=== PATIENT | male | born 1975 | race African-American/Black ===

== ENCOUNTER 2020-05-13 18:40 | Emergency (ER) | payer SELFPAY ==
[2020-05-13] MEDS ORDERED: ACETAMINOPHEN 500 MG TAB ONE (20:20)
--- NOTE | 2020-05-13 20:23 | RAD REPORT ---
EXAM DESCRIPTION: RAD - Foot Right 3 View - 05/13/2020 7:58 pm CLINICAL HISTORY: trauma, persistent pain following remote trauma COMPARISON: No comparisons FINDINGS: No acute or chronic fracture changes seen. No dislocation or periosteal reaction. No destr uctive bone process identifiable. Degenerative changes at the joints are minimal. Soft tissue swelling over the dorsum of the foot. Baseline for the patient is unknown. No air or fore ign body. IMPRESSION: Soft tissue swelling without air or foreign body. No acute bone finding.
[2020-05-13 20:40] LABS: Absolute Lymphocytes (CBC) 1.3 K/uL (0.7-4.9); Basophils % 0.4 % (0-1.3); Hematocrit 39.6 % (39.6-49.0); Lymphocytes % 11.1 % (15.3-44.8); MPV 8.8 fL (7.6-11.3); RBC Red Blood Cell Count 4.23 M/uL (4.33-5.43)
[2020-05-13 20:56] LABS: Albumin 3.5 g/dL (3.4-5.0); Bilirubin Direct 0.5 mg/dL (0-0.2); Bilirubin Total 1.7 mg/dL (0.2-1.0); Protein, Total 7.8 g/dL (6.4-8.2)
--- NOTE | 2020-05-13 22:47 | EDPHYS ---
Physician Documentation [facility] Name: Bertrand Sheth Age: 44 yrs Sex: Male : 1975 Arrival Date: 05/13/2020 Time: 18:43 Bed 15 Private MD: ED Physician Josesito Rock HPI: 05/13 19:46 This 44 yrs old Black Male presents to ER via Wheelchair with complaints of Foot Injury.mh7 19:46 The patient presents with an injury. The complaints affect the right foot. Context: The mh7 problem was sustained at work, resulted from a heavy object falling, Wooden board, Mechanism of Injury: direct blow the patient can fully bear weight, the patient is able to ambulate, without difficulty. Onset: The symptoms/episode began/occurred 1 month(s) ago, and became worse 8 day(s) ago. Modifying factors: The symptoms are alleviated by sitting, the symptoms are aggravated by weight bearing. Associated signs and symptoms: Pertinent positives: swelling, Pertinent negatives: calf tenderness, fever, nausea, numbness, rash, tingling, vomiting, warmth, weakness. Severity of symptoms: At their worst the symptoms were moderate, 8 day(s) ago, in the emergency department the symptoms have improved, moderately. 23:08 Patient states that a large wooden board fell onto his right foot about one month ago mh7 while at work. He has been applying topical treatments to area. He has not taken any pain medication. He has denies any recurrent injury. Denies any fever, redness, chest pain, SOB, nausea, vomiting, numbness/tingling, or weakness. He is walking without difficulty. . 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 - Social history:: Smoking status: Patient denies any tobacco usage or history of. ROS: 19:46 Constitutional: Negative for fever, chills, and weight loss, Eyes: Negative for injury, mh7 pain, redness, and discharge, ENT: Negative for injury, pain, and discharge, Neck: Negative for injury, pain, and swelling, Cardiovascular: Negative for chest pain, palpitations, and edema, Respiratory: Negative for shortness of breath, cough, wheezing, and pleuritic chest pain, Abdomen/GI: Negative for abdominal pain, nausea, vomiting, diarrhea, and constipation, Back: Negative for injury and pain, : Negative for injury, bleeding, discharge, and swelling, Skin: Negative for injury, rash, and discoloration, Neuro: Negative for headache, weakness, numbness, tingling, and seizure, Psych: Negative for depression, anxiety, suicide ideation, homicidal ideation, and hallucinations, Allergy/Immunology: Negative for hives, rash, and allergies, Endocrine: Negative for neck swelling, polydipsia, polyuria, polyphagia, and marked weight changes, Hematologic/Lymphatic: Negative for swollen nodes, abnormal bleeding, and unusual bruising. Exam: 19:46 Constitutional: This is a well developed, well nourished patient who is awake, alert, mh7 and in no acute distress. Head/Face: Normocephalic, atraumatic. Eyes: Pupils equal round and reactive to light, extra-ocular motions intact. Lids and lashes normal. Conjunctiva and sclera are non-icteric and not injected. Cornea within normal limits. Periorbital areas with no swelling, redness, or edema. Neck: Trachea midline, no thyromegaly or masses palpated, and no cervical lymphadenopathy. Supple, full range of motion without nuchal rigidity, or vertebral point tenderness. No Meningismus. Chest/axilla: Normal chest wall appearance and motion. Nontender with no deformity. No lesions are appreciated. Cardiovascular: Regular rate and rhythm with a normal S1 and S2. No gallops, murmurs, or rubs. Normal PMI, no JVD. No pulse deficits. Respiratory: Lungs have equal breath sounds bilaterally, clear to auscultation and percussion. No rales, rhonchi or wheezes noted. No increased work of breathing, no retractions or nasal flaring. Abdomen/GI: Soft, non-tender, with normal bowel sounds. No distension or tympany. No guarding or rebound. No evidence of tenderness throughout. Back: No spinal tenderness. No costovertebral tenderness. Full range of motion. Neuro: Awake and alert, GCS 15, oriented to person, place, time, and situation. Cranial nerves II-XII grossly intact. Motor strength 5/5 in all extremities. Sensory grossly intact. Cerebellar exam normal. Normal gait. Psych: Awake, alert, with orientation to person, place and time. Behavior, mood, and affect are within normal limits. 23:08 Skin: Warm, dry with normal turgor. Normal color with no rashes, no lesions, and no mh7 evidence of cellulitis. 23:08 Musculoskeletal/extremity: Extremities: noted in the dorsal right foot: pain, swelling, tenderness, ROM: intact in all extremities, Circulation is intact in all extremities. Sensation intact. Compartment Syndrome exam of affected extremity: is normal. no numbness, no tingling, no sensation deficit, no palor, no weak pulses, Joints: All joints appear normal with full range of motion. Weight bearing: able to fully bear weight, without difficulty, Tendon exam: specific tendon testing normal through active and passive range of motion DVT Exam: negative Homans' sign noted on exam, no appreciated bluish discoloration, no erythema, no increased warmth, Calves: are non-tender, have equal circumference. Vital Signs: 18:49 BP 174 / 100; Pulse 93; Resp 17; Temp 101.1; Pulse Ox 100% ; Weight 108.86 kg; Height 5 ll1 ft. 8 in. (172.72 cm); Pain 8/10; 19:26 Temp 99.8; vc 20:00 BP 180 / 80; Pulse 83; Resp 17; Pulse Ox 100% on R/A; vc 21:00 BP 184 / 106; Pulse 77; Resp 18; Pulse Ox 100% on R/A; vc 22:00 BP 181 / 109; Pulse 82; Resp 18; Pulse Ox 100% on R/A; vc 18:49 Body Mass Index 36.49 (108.86 kg, 172.72 cm) ll1 MDM: 19:18 Patient medically screened. mh7 22:44 Differential diagnosis: fracture, sprain, foreign body, penetrating trauma, arthritis, mh7 cellulitis, Contusion. Data reviewed: vital signs, nurses notes, old medical records, lab test result(s), CBC, electrolytes, radiologic studies, plain films. Data interpreted: Pulse oximetry: on room air is 100 %. Interpretation: normal. Counseling: I had a detailed discussion with the patient and/or guardian regarding: the historical points, exam findings, and any diagnostic results supporting the discharge/admit diagnosis, the presence of at least one elevated blood pressure reading (>120/80) during this emergency department visit, lab results, radiology results, the need for outpatient follow up, to return to the emergency department if symptoms worsen or persist or if there are any questions or concerns that arise at home. Response to treatment: the patient's symptoms have markedly improved after treatment. 05/14 01:46 Refusal of service: The patient/guardian displays adequate decision making capability mh7 and despite a detailed discussion of alternatives, benefits, risks, and consequences refuses: Medications. ED course: Feels better, NAD, VSS, neurovascularly intact, no focal neurological deficits. Discussed test results and findings with the patient. He requested to be discharged from the ED. he will follow up with his doctor but agreed to return to the ED if worsening of symptoms or other concerns.. 01:50 Refusal of service: The patient/guardian displays adequate decision making capability mh7 and despite a detailed discussion of alternatives, benefits, risks, and consequences refuses: ultrasound. 05/13 19:50 Order name: CBC with Diff; Complete Time: 21:13 [facility] 05/13 19:50 Order name: Basic Metabolic Panel; Complete Time: 21:13 [facility] 05/13 19:18 Order name: Foot Right 3 View XRAY; Complete Time: 20:37 [facility] 05/13 19:50 Order name: LFT's; Complete Time: 21:13 [facility] 05/13 21:16 Order name: CPK; Complete Time: 22:35 mh7 Administered Medications: 05/13 20:18 Drug: Tylenol 1000 mg Route: PO; vc 22:18 Follow up: Response: No adverse reaction vc Disposition: 05/14 01:46 Co-signature as Attending Physician, Josesito Rock MD. [facility] Disposition: 05/13/20 22:46 Discharged to Home. Impression: Right Foot Contusion. - Condition is Stable. - Discharge Instructions: Foot Contusion, [id number]. - Medication Reconciliation Form, Thank You Letter, Antibiotic Education, Prescription Opioid Use form. - Follow up: Private Physician; When: 1 - 2 days; Reason: Worsening of condition, Recheck today's complaints, Continuance of care, Re-evaluation by your physician. Follow up: Rose Marie Avilez MD; When: 1 - 2 days; Reason: Worsening of condition, Recheck today's complaints. Follow up: Henrry Mas DPM; When: 1 - 2 days; Reason: Worsening of condition, Recheck today's complaints. - Problem is an ongoing problem. - Symptoms have improved. Signatures: Dispatcher [employer] EDMS Jade Pete RN RN vc Neena Montes RN RN ll1 Josesito Rock MD MD mh7 Corrections: (The following items were deleted from the chart) 05/13 23:03 22:46 05/13/2020 22:46 Discharged to Home. Impression: Right Foot Contusion. Condition vc is Stable. Forms are Medication Reconciliation Form, Thank You Letter, Antibiotic Education, Prescription Opioid Use. Follow up: Private Physician; When: 1 - 2 days; Reason: Worsening of condition, Recheck today's complaints, Continuance of care, Re-evaluation by your physician. Follow up: Rose Marie Avilez; When: 1 - 2 days; Reason: Worsening of condition, Recheck today's complaints. Follow up: Henrry Mas; When: 1 - 2 days; Reason: Worsening of condition, Recheck today's complaints. Problem is an ongoing problem. Symptoms have improved. mh7
--- NOTE | 2020-05-13 22:47 | ER ---
Nurse's Notes [facility] Name: Bertrand Sheth Age: 44 yrs Sex: Male : 1975 Arrival Date: 05/13/2020 Time: 18:43 Bed 15 Private MD: Diagnosis: Right Foot Contusion Presentation: 05/13 18:49 Chief complaint: Patient states: Large board hit right foot over 1 month ago. Right ll1 foot started to get painful and swollen 8 days ago. Coronavirus screen: Client denies travel out of the [place] in the last 14 days. At this time, the client does not indicate any symptoms associated with coronavirus-19. Ebola Screen: Patient denies travel to an Ebola-affected area in the 21 days before illness onset. Initial Sepsis Screen: Does the patient meet any 2 criteria? Temp <36.0*C (96.8*F)) or > 38.3*C (100.9*F). HR > 90 bpm. Yes Does the patient have a suspected source of infection? No. Patient's initial sepsis screen is negative. Risk Assessment: Do you want to hurt yourself or someone else? Patient reports no desire to harm self or others. Onset of symptoms was May 03, 2020. 18:49 Method Of Arrival: Wheelchair ll1 18:49 Acuity: ELIZABETH 3 ll1 Triage Assessment: 19:00 General: Appears in no apparent distress. comfortable, Behavior is calm, cooperative, vc appropriate for age. Pain: Complains of pain in right foot Pain does not radiate. Pain currently is 7 out of 10 on a pain scale. Quality of pain is described as squeezing. Musculoskeletal: Circulation, motion, and sensation intact. Range of motion: intact in all extremities. Injury Description: Dropped a piece of wood on his foot. 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 - Social history:: Smoking status: Patient denies any tobacco usage or history of. Screenin:00 Abuse screen: Denies threats or abuse. Nutritional screening: No deficits noted. vc Tuberculosis screening: No symptoms or risk factors identified. Fall Risk None identified. Assessment: 19:00 General: Appears in no apparent distress. comfortable, Behavior is calm, cooperative, vc appropriate for age. Pain: Complains of pain in right foot. Neuro: Level of Consciousness is awake, alert, obeys commands, Oriented to person, place, time, situation. Cardiovascular: Capillary refill < 3 seconds Patient's skin is warm and dry. Respiratory: No deficits noted. GI: No deficits noted. : No signs and/or symptoms were reported regarding the genitourinary system. 20:00 Reassessment: Patient appears in no apparent distress at this time. Patient and/or vc family updated on plan of care and expected duration. Pain level reassessed. Patient is alert, oriented x 3, equal unlabored respirations, skin warm/dry/pink. 21:00 Reassessment: Patient and/or family updated on plan of care and expected duration. Pain vc level reassessed. Patient is alert, oriented x 3, equal unlabored respirations, skin warm/dry/pink. 22:00 Reassessment: Patient and/or family updated on plan of care and expected duration. Pain vc level reassessed. Patient is alert, oriented x 3, equal unlabored respirations, skin warm/dry/pink. 22:50 Reassessment: Patient appears in no apparent distress at this time. Patient and/or vc family updated on plan of care and expected duration. Pain level reassessed. Patient is alert, oriented x 3, equal unlabored respirations, skin warm/dry/pink. Patient states symptoms have improved. Vital Signs: 18:49 BP 174 / 100; Pulse 93; Resp 17; Temp 101.1; Pulse Ox 100% ; Weight 108.86 kg; Height 5 ll1 ft. 8 in. (172.72 cm); Pain 8/10; 19:26 Temp 99.8; vc 20:00 BP 180 / 80; Pulse 83; Resp 17; Pulse Ox 100% on R/A; vc 21:00 BP 184 / 106; Pulse 77; Resp 18; Pulse Ox 100% on R/A; vc 22:00 BP 181 / 109; Pulse 82; Resp 18; Pulse Ox 100% on R/A; vc 18:49 Body Mass Index 36.49 (108.86 kg, 172.72 cm) ll1 ED Course: 18:43 Patient arrived in ED. as 18:50 Triage completed. ll1 18:50 Arm band placed on Patient placed in an exam room, on a stretcher. ll1 19:00 Patient has correct armband on for positive identification. Bed in low position. Call vc light in reach. Pulse ox on. NIBP on. 19:02 Josesito Rock MD is Attending Physician. [facility] 19:20 Jade Pete, RN is Primary Nurse. vc 19:59 Foot Right 3 View XRAY In Process Unspecified. EDMS 22:45 Rose Marie Avilez MD is Referral Physician. [facility] 22:45 Henrry Mas DPM is Referral Physician. [facility] 22:50 No provider procedures requiring assistance completed. Patient did not have IV access vc during this emergency room visit. Administered Medications: 20:18 Drug: Tylenol 1000 mg Route: PO; vc 22:18 Follow up: Response: No adverse reaction vc Outcome: 22:46 Discharge ordered by . [facility] 23:03 Discharged to home ambulatory. vc 23:03 Condition: good 23:03 Discharge instructions given to patient, Instructed on discharge instructions, follow up and referral plans. Demonstrated understanding of instructions, follow-up care. 23:03 Patient left the ED. vc Signatures: Dispatcher [employer] EDMS Claudia Easley as Jade Pete, RN RN Neena Mancera RN RN 1 Josesito Rock MD MD [facility]
[2020-05-17 19:10] VITALS: O2SAT 100
[2020-05-17 19:11] VITALS: TEMP 99.8
[2020-05-17 19:15] VITALS: BP 181/109
== END 2020-05-13 23:03 | disposition home or self-care (01) ==
LOC: ER 18:40
DX: S90.31XA Contusion of right foot, initial encounter (principal); W20.8XXA Other cause of strike by thrown, projected or falling object, initial encounter; Y93.9 Activity, unspecified; Y92.9 Unspecified place or not applicable; Y99.0 Civilian activity done for income or pay; H91.93 Unspecified hearing loss, bilateral
CPT/HCPCS: 36415; 80048; 80076; 82550; 85025; 99284

== ENCOUNTER 2020-11-10 06:04 | Inpatient (IN) | payer BC, SELFPAY ==
[2020-11-10 06:34] LABS: Absolute Lymphocytes (CBC) 1.1 K/uL (0.7-4.9); Basophils % 0.4 % (0-1.3); Hematocrit 43.3 % (39.6-49.0); Lymphocytes % 11.4 % (15.3-44.8); MPV 9.1 fL (7.6-11.3); RBC Red Blood Cell Count 4.66 M/uL (4.33-5.43)
[2020-11-10 06:38] LABS: Protime INR 0.97
[2020-11-10 06:56] LABS: Albumin 4.3 g/dL (3.4-5.0); Bilirubin Direct 0.2 mg/dL (0-0.2); Bilirubin Total 0.8 mg/dL (0.2-1.0); Magnesium 1.9 mg/dL (1.8-2.4); Potassium 3.4 mmol/L (3.5-5.1); Protein, Total 8.3 g/dL (6.4-8.2); Troponin (Emerg Dept Use Only) 0.43 ng/mL (0.0-0.045)
[2020-11-10] MEDS ORDERED: cloNIDine HCL 0.1 MG TAB ONE ×2 (07:08→15:11)
[2020-11-10] MEDS ORDERED: ASPIRIN 81 MG CHEWABLE TABLET ONE (07:08)
--- NOTE | 2020-11-10 08:22 | RAD REPORT ---
EXAM DESCRIPTION: CT - Angio Aorta For Dissection - 11/10/2020 8:01 am CLINICAL HISTORY: Chest pain radiating to the back. CHEST PAIN COMPARISON: No comparisons TECHNIQUE: CT angiography of the aorta was performed with MIPs. All CT scans are performed using dose optimization technique as appropriate and may include automated exposure control or mA/KV adjustment according to patient size. FINDINGS: A left aortic arch is present with normal branching pattern of the great vessels.No acute aortic finding is seen such as aneurysm, penetrating ulcer or dissection. The celiac axis, SMA, ANEL and renal arteries are patent. No evidence of pulmonary embolism. The lungs are clear. The liver demonstrates no focal mass or biliary dilatation.The spleen, pancreas, adrenal glands are w ithin normal limits for arterial phase imaging. 3 mm stone is present at the right UVJ resulting in mild right hydronephrosis. Punctate calculi noted superior right kidney. No bowel obstruction, free fluid or abscess.No pathologic enlarged lymphadenopathy identified. Prominent posterior disc bulges are seen lower lumbar levels. IMPRESSION: 3 mm stone right UVJ resulting in mild right hydronephrosis. No acute aortic finding seen.
[2020-11-10] MEDS ORDERED: LABETALOL 20 MG/4ML SYRINGE IV ONE ×2 (08:43→09:55)
--- NOTE | 2020-11-10 08:49 | EDPHYS ---
Physician Documentation [facility] Name: Bertrand Sheth Age: 44 yrs Sex: Male : 1975 Arrival Date: 11/10/2020 Time: 06:07 Bed 19 Private MD: ED Physician Jonathon Redding HPI: 11/10 06:41 This 44 yrs old Black Male presents to ER via Wheelchair with complaints of Breathing mh7 Difficulty. 06:41 The patient has shortness of breath at rest, with light activity. Onset: The mh7 symptoms/episode began/occurred this morning, at 04:30. Duration: The symptoms are intermittent, with no pattern. The patient's shortness of breath is aggravated by exertion, light activity, is alleviated by nothing. Associated signs and symptoms: Pertinent positives: chest pain, Pertinent negatives: non-productive cough, productive cough, diaphoresis, dizziness, fever, hemoptysis, loss of consciousness, nausea, numbness in extremities, visual changes, vomiting. Severity of symptoms: At their worst the symptoms were moderate today, in the emergency department the symptoms are unchanged. 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 - Social history:: Smoking status: Patient denies any tobacco usage or history of. ROS: 06:41 Constitutional: Negative for fever, chills, and weight loss, Eyes: Negative for injury, mh7 pain, redness, and discharge, ENT: Negative for injury, pain, and discharge, Neck: Negative for injury, pain, and swelling, Abdomen/GI: Negative for abdominal pain, nausea, vomiting, diarrhea, and constipation, Back: Negative for injury and pain, : Negative for injury, bleeding, discharge, and swelling, MS/Extremity: Negative for injury and deformity, Skin: Negative for injury, rash, and discoloration, Neuro: Negative for headache, weakness, numbness, tingling, and seizure, Psych: Negative for depression, anxiety, suicide ideation, homicidal ideation, and hallucinations, Allergy/Immunology: Negative for hives, rash, and allergies, Endocrine: Negative for neck swelling, polydipsia, polyuria, polyphagia, and marked weight changes, Hematologic/Lymphatic: Negative for swollen nodes, abnormal bleeding, and unusual bruising. Exam: 06:41 Constitutional: This is a well developed, well nourished patient who is awake, alert, mh7 and in no acute distress. Head/Face: Normocephalic, atraumatic. Eyes: Pupils equal round and reactive to light, extra-ocular motions intact. Lids and lashes normal. Conjunctiva and sclera are non-icteric and not injected. Cornea within normal limits. Periorbital areas with no swelling, redness, or edema. Neck: Trachea midline, no thyromegaly or masses palpated, and no cervical lymphadenopathy. Supple, full range of motion without nuchal rigidity, or vertebral point tenderness. No Meningismus. Chest/axilla: Normal chest wall appearance and motion. Nontender with no deformity. No lesions are appreciated. Cardiovascular: Regular rate and rhythm with a normal S1 and S2. No gallops, murmurs, or rubs. Normal PMI, no JVD. No pulse deficits. Respiratory: Lungs have equal breath sounds bilaterally, clear to auscultation and percussion. No rales, rhonchi or wheezes noted. No increased work of breathing, no retractions or nasal flaring. Abdomen/GI: Soft, non-tender, with normal bowel sounds. No distension or tympany. No guarding or rebound. No evidence of tenderness throughout. Back: No spinal tenderness. No costovertebral tenderness. Full range of motion. Skin: Warm, dry with normal turgor. Normal color with no rashes, no lesions, and no evidence of cellulitis. MS/ Extremity: Pulses equal, no cyanosis. Neurovascular intact. Full, normal range of motion. Neuro: Awake and alert, GCS 15, oriented to person, place, time, and situation. Cranial nerves II-XII grossly intact. Motor strength 5/5 in all extremities. Sensory grossly intact. Cerebellar exam normal. Normal gait. Psych: Awake, alert, with orientation to person, place and time. Behavior, mood, and affect are within normal limits. Vital Signs: 06:25 BP 210 / 117 RA; Pulse 69; Resp 17; Temp 98(TE); Pulse Ox 98% on R/A; Weight 108.86 kg lp1 (R); 06:26 BP 212 / 116 LA; lp1 06:34 BP 197 / 117; mg2 07:30 BP 198 / 110; Pulse 78; Resp 16; Pulse Ox 99% ; ph 08:30 BP 195 / 103; Pulse 69; Resp 18; Pulse Ox 99% on R/A; ph 09:07 BP 181 / 99; Pulse 64; Resp 18; Pulse Ox 98% on R/A; ph 09:30 BP 152 / 94; Pulse 66; Resp 16; Pulse Ox 100% on R/A; ph 10:30 BP 183 / 101; Pulse 67; Resp 18; Pulse Ox 98% on R/A; ph 11:42 BP 162 / 114; Pulse 65; Resp 18; Pulse Ox 99% on R/A; ph 12:30 BP 176 / 101; Pulse 67; Resp 18; Pulse Ox 98% on R/A; ph 13:28 BP 166 / 91; Pulse 67; Resp 18; Pulse Ox 98% on R/A; ph MDM: 07:19 Patient medically screened. rn 08:46 Differential diagnosis: Myocardial Infarction Pneumothorax pulmonary edema, Unstable rn Angina aortic dissection. Data reviewed: vital signs, nurses notes, lab test result(s), EKG, radiologic studies, CT scan, plain films, and as a result, I will admit patient. Counseling: I had a detailed discussion with the patient and/or guardian regarding: the historical points, exam findings, and any diagnostic results supporting the discharge/admit diagnosis, lab results, radiology results, the need for further work-up and treatment in the hospital. Response to treatment: the patient's symptoms have mildly improved after treatment, and as a result, I will admit patient. Admission orders: after a detailed discussion of the patient's condition and case, the admit orders are written by me. ED course: CT aorta neg, elevated troponin, BP still elevated, will repeat labetalol dose and admit to Dr. Avilez. Incidental right UVJ stone, patient denies any abd pain. . 11/10 06:12 Order name: Basic Metabolic Panel ll2 11/10 06:12 Order name: CBC with Diff; Complete Time: 06:45 ll2 11/10 06:12 Order name: LFT's; Complete Time: 07:42 ll2 11/10 06:12 Order name: Magnesium; Complete Time: 07:42 ll2 11/10 06:12 Order name: NT PRO-BNP; Complete Time: 07:42 ll2 11/10 06:12 Order name: PT-INR; Complete Time: 06:45 ll2 11/10 06:12 Order name: Troponin (emerg Dept Use Only); Complete Time: 07:42 ll2 11/10 06:12 Order name: Basic Metabolic Panel; Complete Time: 07:42 EDMS 11/10 10:07 Order name: Comprehensive Metabolic Panel EDMS 11/10 10:07 Order name: Comprehensive Metabolic Panel EDMS 11/10 10:08 Order name: Urinalysis EDMS 11/10 10:08 Order name: CBC with Automated Diff EDMS 11/10 10:08 Order name: CBC with Automated Diff EDMS 11/10 06:12 Order name: XRAY Chest (1 view); Complete Time: 09:18 2 11/10 07:42 Order name: CT Aorta for Dissection; Complete Time: 09:18 11/10 10:08 Order name: Magnesium EDMS 11/10 10:08 Order name: Magnesium EDMS 11/10 10:08 Order name: NT PRO-BNP EDMS 11/10 10:08 Order name: NT PRO-BNP EDMS 11/10 10:08 Order name: Phosphorus EDMS 11/10 10:08 Order name: Phosphorus EDME 11/10 10:19 Order name: Troponin I EDME 11/10 10:19 Order name: Troponin I EDME 11/10 10:19 Order name: Troponin I EDME 11/10 10:20 Order name: Echo with Doppler EDME 11/10 10:24 Order name: SARS-COV-2 RT PCR EDME 11/10 06:12 Order name: EKG; Complete Time: 06:13 ll2 11/10 06:12 Order name: Cardiac monitoring; Complete Time: 06:28 2 11/10 06:12 Order name: EKG - Nurse/Tech; Complete Time: 06:12 2 11/10 06:12 Order name: IV Saline Lock; Complete Time: 06:28 ll2 11/10 06:12 Order name: Labs collected and sent; Complete Time: 06:28 2 11/10 06:12 Order name: O2 Per Protocol; Complete Time: 06:28 2 11/10 06:12 Order name: O2 Sat Monitoring; Complete Time: 06:28 2 11/10 10:12 Order name: Heart Healthy EDME 11/10 10:20 Order name: CONS Physician Consult EDMS Administered Medications: 06:55 Drug: cloNIDine 0.1 mg Route: PO; mg2 07:30 Follow up: Response: No adverse reaction ph 06:56 Drug: Aspirin Chewable Tablet 324 mg Route: PO; mg2 07:30 Follow up: Response: No adverse reaction ph 08:37 Drug: Labetalol 5 mg Route: IVP; Infused Over: 2 mins; Site: right antecubital; ph 09:00 Follow up: Response: No adverse reaction; Blood pressure is lowered ph 08:53 Not Given (Duplicate Order): Aspirin Chewable Tablet 324 mg PO once; 81 mg tablets x 4 ph 11:10 Drug: Labetalol 5 mg Route: IVP; Infused Over: 2 mins; Site: right antecubital; ph 11:30 Follow up: Response: No adverse reaction; Blood pressure is lowered ph Disposition: 11/10/20 08:49 Hospitalization ordered by Rose Marie Avilez for Observation. Preliminary diagnosis are Chest pain, unspecified, Dyspnea, unspecified, Malignant Hypertension, Calculus of ureter. - Bed requested for Telemetry/MedSurg (observation). - Status is Observation. ph - Condition is Stable. - Problem is new. - Symptoms have improved. Signatures: Dispatcher [employer] EDME Liz Rivera Roman, MD MD rn Pena, Laura, RN RN lp1 Lucille Khalil RN RN Poli Aranda RN RN mg2 Jena Ocampo RN RN ll2 Josesito Rock MD MD mh7 Corrections: (The following items were deleted from the chart) 09:34 09:07 CORONAVIRUS+MR.LAB.BRZ ordered. EDME EDMS 10:11 10:08 CONS Physician Consult ordered. EDME EDMS 10:11 10:08 Renal ordered. EDME EDMS 14:11 08:49 Hospitalization Ordered by Rose Marie Avilez MD for Observation. Preliminary bd diagnosis is Chest pain, unspecified; Dyspnea, unspecified; Malignant Hypertension; Calculus of ureter. Bed requested for Telemetry/MedSurg (observation). Status is Observation. Condition is Stable. Problem is new. Symptoms have improved. rn 16:25 14:11 11/10/2020 08:49 Hospitalization Ordered by Rose Marie Avilez MD for Observation. bd Preliminary diagnosis is Chest pain, unspecified; Dyspnea, unspecified; Malignant Hypertension; Calculus of ureter. Bed requested for [facility] ER HOLD. Status is Observation. Condition is Stable. Problem is new. Symptoms have improved. bd 18:01 16:25 11/10/2020 08:49 Hospitalization Ordered by Rose Marie Avilez MD for Observation. ph Preliminary diagnosis is Chest pain, unspecified; Dyspnea, unspecified; Malignant Hypertension; Calculus of ureter. Bed requested for Telemetry/MedSurg (observation). Status is Observation. Condition is Stable. Problem is new. Symptoms have improved. bd
--- NOTE | 2020-11-10 08:49 | ER ---
Nurse's Notes [facility] Name: Bertrand Sheth Age: 44 yrs Sex: Male : 1975 Arrival Date: 11/10/2020 Time: 06:07 Bed 19 Private MD: Diagnosis: Chest pain, unspecified;Dyspnea, unspecified;Malignant Hypertension;Calculus of ureter Presentation: 11/10 06:26 Chief complaint: Patient states: Chest pain that began about 0430 this AM, reports lp1 difficulty breathing. Coronavirus screen: Client denies travel out of the [place] in the last 14 days. At this time, the client does not indicate any symptoms associated with coronavirus-19. Ebola Screen: No symptoms or risks identified at this time. Initial Sepsis Screen: Does the patient meet any 2 criteria? No. Patient's initial sepsis screen is negative. Does the patient have a suspected source of infection? No. Patient's initial sepsis screen is negative. Risk Assessment: Do you want to hurt yourself or someone else? Patient reports no desire to harm self or others. Onset of symptoms was November 10, 2020 at 04:30. 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 - Social history:: Smoking status: Patient denies any tobacco usage or history of. Screenin:27 Abuse screen: Denies threats or abuse. Denies injuries from another. Nutritional lp1 screening: No deficits noted. Tuberculosis screening: No symptoms or risk factors identified. 06:35 Fall Risk IV access (20 points). mg2 Assessment: 06:30 General: Appears in no apparent distress. comfortable, Behavior is calm. Pain: mg2 Complains of pain in chest. Neuro: Level of Consciousness is awake, alert, obeys commands, Oriented to person, place, time, situation. Cardiovascular: Capillary refill < 3 seconds Patient's skin is warm and dry. Respiratory: Airway is patent Respiratory effort is even, unlabored, Respiratory pattern is regular, symmetrical. GI: No signs and/or symptoms were reported involving the gastrointestinal system. : No signs and/or symptoms were reported regarding the genitourinary system. EENT: No signs and/or symptoms were reported regarding the EENT system. Derm: Skin is intact, is healthy with good turgor, Skin is pink, warm \T\ dry. normal. Musculoskeletal: Circulation, motion, and sensation intact. Capillary refill < 3 seconds. 07:48 Reassessment: Patient appears in no apparent distress at this time. Patient and/or ph family updated on plan of care and expected duration. Pain level reassessed. Patient is alert, oriented x 3, equal unlabored respirations, skin warm/dry/pink. Pt taken to CT. 09:00 Reassessment: Patient appears in no apparent distress at this time. Patient and/or ph family updated on plan of care and expected duration. Pain level reassessed. Patient is alert, oriented x 3, equal unlabored respirations, skin warm/dry/pink. 10:00 Reassessment: Patient appears in no apparent distress at this time. Patient and/or ph family updated on plan of care and expected duration. Pain level reassessed. Patient is alert, oriented x 3, equal unlabored respirations, skin warm/dry/pink. 11:00 Reassessment: Patient appears in no apparent distress at this time. Patient and/or ph family updated on plan of care and expected duration. Pain level reassessed. Patient is alert, oriented x 3, equal unlabored respirations, skin warm/dry/pink. Pt ambulatory to restroom w/ steady gait. 12:00 Reassessment: Patient appears in no apparent distress at this time. Patient and/or ph family updated on plan of care and expected duration. Pain level reassessed. Patient is alert, oriented x 3, equal unlabored respirations, skin warm/dry/pink. 13:00 Reassessment: Patient appears in no apparent distress at this time. Patient and/or ph family updated on plan of care and expected duration. Pain level reassessed. Patient is alert, oriented x 3, equal unlabored respirations, skin warm/dry/pink. Vital Signs: 06:25 BP 210 / 117 RA; Pulse 69; Resp 17; Temp 98(TE); Pulse Ox 98% on R/A; Weight 108.86 kg lp1 (R); 06:26 BP 212 / 116 LA; lp1 06:34 BP 197 / 117; mg2 07:30 BP 198 / 110; Pulse 78; Resp 16; Pulse Ox 99% ; ph 08:30 BP 195 / 103; Pulse 69; Resp 18; Pulse Ox 99% on R/A; ph 09:07 BP 181 / 99; Pulse 64; Resp 18; Pulse Ox 98% on R/A; ph 09:30 BP 152 / 94; Pulse 66; Resp 16; Pulse Ox 100% on R/A; ph 10:30 BP 183 / 101; Pulse 67; Resp 18; Pulse Ox 98% on R/A; ph 11:42 BP 162 / 114; Pulse 65; Resp 18; Pulse Ox 99% on R/A; ph 12:30 BP 176 / 101; Pulse 67; Resp 18; Pulse Ox 98% on R/A; ph 13:28 BP 166 / 91; Pulse 67; Resp 18; Pulse Ox 98% on R/A; ph ED Course: 06:07 Patient arrived in ED. am2 06:08 Poli Aranda, RN is Primary Nurse. mg2 06:13 Josesito Rock MD is Attending Physician. mh7 06:15 Inserted saline lock: 20 gauge in right antecubital area, using aseptic technique. mg2 Blood collected. by MICHAELA matt. 06:27 Triage completed. lp1 06:27 Patient has correct armband on for positive identification. Bed in low position. Call lp1 light in reach. Side rails up X2. railroad worker on. Pulse ox on. NIBP on. 06:34 No provider procedures requiring assistance completed. mg2 07:07 XRAY Chest (1 view) In Process Unspecified. EDMS 07:19 Attending Physician role handed off by Josesito Rock MD rn 07:19 Jonathon Redding MD is Attending Physician. rn 07:30 Arm band placed on. ph 08:01 CT Aorta for Dissection In Process Unspecified. EDMS 08:48 Rose Marie Avilez MD is Hospitalizing Provider. rn 13:28 Patient admitted, IV remains in place. ph Administered Medications: 06:55 Drug: cloNIDine 0.1 mg Route: PO; mg2 07:30 Follow up: Response: No adverse reaction ph 06:56 Drug: Aspirin Chewable Tablet 324 mg Route: PO; mg2 07:30 Follow up: Response: No adverse reaction ph 08:37 Drug: Labetalol 5 mg Route: IVP; Infused Over: 2 mins; Site: right antecubital; ph 09:00 Follow up: Response: No adverse reaction; Blood pressure is lowered ph 08:53 Not Given (Duplicate Order): Aspirin Chewable Tablet 324 mg PO once; 81 mg tablets x 4 ph 11:10 Drug: Labetalol 5 mg Route: IVP; Infused Over: 2 mins; Site: right antecubital; ph 11:30 Follow up: Response: No adverse reaction; Blood pressure is lowered ph Outcome: 08:49 Decision to Hospitalize by Provider. rn 14:30 Admitted to ER Hold. Please see [facility] for further documentation. ph 14:30 Condition: stable 14:30 Instructed on the need for admit. 18:01 Patient left the ED. ph Signatures: Dispatcher [employer] EDMS Jonathon Redding MD MD rn Pena, Laura, RN RN 1 Lucille Khalil RN RN ph Moreno, Amanda 2 Poli Aranda RN RN mg2 Josesito Rock MD MD mh7
--- NOTE | 2020-11-10 08:55 | RAD REPORT ---
EXAM DESCRIPTION: RAD - Chest Single View - 11/10/2020 7:07 am CLINICAL HISTORY: Chest pain;SOB;Dyspnea Chest pain. COMPARISON: Chest Single View dated 01/09/2016; CHEST SINGLE VIEW dated 09/30/2010; CHEST SINGLE VIEW dated 06/28/2008 FINDINGS: Portable technique limits examination quality. The lungs are grossly clear. The heart is normal in size. No displaced fractures. IMPRESSION: No acute intrathoracic process suspected.
[2020-11-10] MEDS ORDERED: ONDANSETRON 4 MG/2 ML VIAL IV PRN (10:04)
[2020-11-10] MEDS ORDERED: ACETAMINOPHEN 500 MG TAB PO PRN (10:04)
[2020-11-10] MEDS ORDERED: FUROSEMIDE 20 MG/ 2ML VIAL IV ONE (10:09)
[2020-11-10] MEDS ORDERED: AMLODIPINE 5 MG TAB PO ONE (10:09)
[2020-11-10] MEDS: cloNIDine HCL 0.1 MG TAB PO SCH ×2 (14:00→21:29)
[2020-11-10] MEDS ORDERED: IPRATROPIUM BROM 0.5MG/2.5ML NEB SCH (14:00)
[2020-11-10] MEDS ORDERED: ALBUTEROL 2.5 MG/3 ML NEB SOL NEB SCH (14:00)
[2020-11-10] MEDS ORDERED: FUROSEMIDE 20 MG/ 2ML VIAL ONE (15:10)
[2020-11-10] MEDS ORDERED: AMLODIPINE 10 MG TAB ONE (15:11)
[2020-11-10 18:15] VITALS: BMI 34.9
--- NOTE | 2020-11-10 19:57 | CON ---
Date of Consultation: 11/10/2020 Reason For Consultation: Chest pain. History Of Present Illness: This is a 44-year-old male who comes in with chest pain and shortness of breath. He said he woke up and could not catch his breath. Blood pressure was very high, presented to the emergency room. He does not have any medical history except hypertension. Does not have any other risk factors. Past Medical History: Hypertension. Medications: Refer consultation sheet for detailed list. Allergies: NO KNOWN DRUG ALLERGIES. Family History: No premature coronary artery disease, cancer. Social History: Does not smoke or drink. Does not use any drugs. Review of Systems: All systems reviewed and they were negative except for what is mentioned in the HPI. Physical Examination: Vital Signs: Temperature is 97.6, pulse 65, breathing 18, blood pressure 167/98, saturating 98% on r oom air. General: Pleasant middle-aged male, in no apparent distress. Head and Neck: Pupils are equal, reactive to light. Intact eye movements. No JVD. No cervical lym phadenopathy. Neck: Supple. Thyroid is not enlarged. Lungs: Clear to auscultation bilaterally. No rhonchi, rales, or crackles. No accessory muscle use. Heart: Regular rate and rhythm. No extra sounds. Abdomen: Soft, nontender. Bowel sounds positive. No organomegaly. No rigidity or rebound. Extremities: No edema, clubbing, or cyanosis. Skin: No rash. Neurologic: Alert, awake. No acute focal deficits appreciated. Investigations: EKG is normal sinus rhythm without acute abnormalities. Creatinine 1.57. Troponins was 0.43, hemoglobin 14.9. Assessment/plan: 1.Chest pain with risk factors including hypertension and elevated troponin suggestive of non-ST joan vation myocardial infarction. Admit. Start him on Lovenox and aspirin, oxygen therapy. Trend tropo nins and obtain echocardiogram. Keep n.p.o. past midnight for possible coronary angiogram tomorrow m josias. 2.Hypertensive crisis. Agree with amlodipine. Recommend to start also Coreg 6.25 mg twice a day. Monitor blood pressure closely. 3.Chronic kidney disease, likely due to malignant hypertension. Monitor BUN, creatinine. Thank you for the consult. /JEWELS Voice ID: [id number] Report ID: [id number]
[2020-11-10] MEDS: HEPARIN 5000 UNIT/ML 1 ML VIAL SQ SCH (21:29)
[2020-11-11 06:03] LABS: Absolute Lymphocytes (CBC) 1.6 K/uL (0.7-4.9); Basophils % 0.2 % (0-1.3); Hematocrit 40.4 % (39.6-49.0); Lymphocytes % 18.9 % (15.3-44.8); MPV 9.1 fL (7.6-11.3); RBC Red Blood Cell Count 4.31 M/uL (4.33-5.43)
[2020-11-11 06:13] LABS: Albumin 3.5 g/dL (3.4-5.0); Bilirubin Total 0.8 mg/dL (0.2-1.0); Magnesium 2.1 mg/dL (1.8-2.4); Phosphorus 3.7 mg/dL (2.5-4.9); Potassium 3.1 mmol/L (3.5-5.1); Protein, Total 7.1 g/dL (6.4-8.2)
[2020-11-11] MEDS: AMLODIPINE 10 MG TAB PO SCH (08:32)
[2020-11-11] MEDS: cloNIDine HCL 0.1 MG TAB PO SCH ×3 (08:33→21:10)
[2020-11-11] MEDS: HEPARIN 5000 UNIT/ML 1 ML VIAL SQ SCH ×2 (08:34→21:11)
[2020-11-11] MEDS ORDERED: HEPA 1000U/500MLS 1,000 UNIT/500 ML BAG IV ONE (08:42)
[2020-11-11] MEDS ORDERED: LIDOCAINE 1% 20 ML MDV ONE (08:42)
[2020-11-11] MEDS ORDERED: ACETYLCYST 20% 4 ML VIAL IH ONE (08:43)
[2020-11-11] MEDS ORDERED: NA CHLORIDE 0.9% 500 ML ONE (08:50)
[2020-11-11] MEDS ORDERED: MIDAZOLAM HCL 2 MG/2 ML INJ ONE ×2 (09:22→09:46)
[2020-11-11] MEDS ORDERED: FENTANYL CITR 100 MCG/2 ML ONE (09:23)
[2020-11-11] MEDS ORDERED: ATROPINE SULF 1 MG/10 ML SYR IV ONE (09:23)
[2020-11-11] MEDS ORDERED: NA CHLORIDE 0.9% 0 ML ONE (09:23)
--- NOTE | 2020-11-11 10:16 | OP ---
Date of Procedure: 11/10/2020 Surgeon: Demarco Villar MD Front Window Cashier: Mr. Ugarte. Angio-Seal was done for closure of the right common femoral artery entry site. He will be at bedrest for 2 hours. He can go home whenever it is okay with Dr. Avilez. I would like to see him in the offi ce in 2 weeks and he should be on aspirin and statin and antihypertensive therapy. Indications: Admitted to Dr. Avilez and seen by Dr. Rodríguez yesterday, 11/10/2020 for atypical chest pa in, hypertensive crisis, elevated troponin. Procedure In Detail: Brought [facility] the [facility] today as an inpatient, prepped and draped in the routin e sterile fashion. Underwent the left heart catheterization, selective coronary arteriogram. He was given Versed and fentanyl for sedation. A 6-Uzbek sheath introduced in the right common femoral ar tsering successfully using the Seldinger technique. Angiography there was normal. Angio-Seal was used to close the case. JL4 and JR4 catheters were used to select the left main and right main respective ly. His RCA was normal. It was right dominant. His left main was normal. LAD was normal. He had a 40% to 50% ostial ramus stenosis. No complications. Blood loss was 5 mL. Postoperative Diagnosis: Mild coronary artery disease. Plan: Plan is for medical treatment. Anesthesia: Total conscious sedation 30 minutes. ELI/JEWELS Voice ID: [id number] Report ID: [id number]
[2020-11-11 16:26] LABS: CKMB Creatine Kinase MB 2.3 ng/mL (0.3-3.6); Uric Acid 7.9 mg/dL (3.5-7.2)
[2020-11-11] MEDS ORDERED: D5W 1,000 ML with NA BICARB 8.4% 50 MEQ IV SCH ×2 (18:00)
--- NOTE | 2020-11-11 20:14 | RAD REPORT ---
EXAM DESCRIPTION: US - Renal Ultrasound-Complete - 11/11/2020 7:45 pm CLINICAL HISTORY: abnormal renal function COMPARISON: CT November 10 FINDINGS: The right kidney measures approximately 9.6 x 6.7. The left kidney measures approximately 10.2 x 5.8. Renal cortical thickness and echogenicity are normal. Mild right-sided hydronephrosis pr esent similar to the prior day CT study. No left-sided hydronephrosis. No solid mass of either kidney . Mostly contracted bladder shows no gross abnormality. IMPRESSION: Mild right-sided hydronephrosis similar to prior day CT study. No other significant findings.
[2020-11-11] MEDS: ACETYLCYST 20% 800 MG/4 ML VIAL PO SCH (21:10)
--- NOTE | 2020-11-11 23:43 | CON ---
Date of Consultation: 11/11/2020 Reason For Consultation: Elevated BUN and creatinine. History Of Present Illness: This is a pleasant 44-year-old black gentleman with significant past medical history of hypertension, overweight, the patient came to the hospital complaining from shortness of breath and chest tightness pressure like. Found to have elevation in BUN and creatinine. For that reason, we have been consulted. Also, the patient found to have non-ST elevation OK. The patient was taking for cardiac cath. Yesterday upon arrival to the hospital, creatinine 1.5. Today before the cardiac cath, creatinine 2.3. GFR dropped from 58 to 36. There is no documentation for any low blood pressure. The patient denied taking any nonsteroidal. The patient exposed to the contrast after the elevation in the creatinine. The patient at home being on hydrochlorothiazide and ARB. Past Medical History: Includes hypertension. Home Medications: Include hydrochlorothiazide, losartan. Current Medication: Includes Tylenol, amlodipine, Mucomyst. Social History: Denies smoking. Denies drinking. Denies drugs abuse. Family History: Positive for coronary artery disease. Review of Systems: Head and Neck: Has headache. GI: No nausea. No vomiting. : No polyuria. No dysuria. No hematuria. FOOD SERVICE MANAGER: Not applicable. Respiratory: Has shortness of breath. Cardiovascular: Has chest tightness. Endocrine: No polydipsia. Skin: No rash. Neuro: Generalized fatigue. Musculoskeletal: Generalized weakness. Physical Examination: General: When I saw the patient, patient lying in bed, not on any distress. Vital Signs: Blood pressure 116/63, pulse of 69, afebrile. The patient had good urine output. Chest: Clear to auscultation. Heart: S1, S2. Regular. Abdomen: Soft, nontender. No renal bruit. Extremities: No edema. Neurological: Alert and oriented x3. No focal. Laboratory Data: Sodium 138, potassium 3.1, calcium 8.5, uric acid 7.9, albumin 3.5. BNP is 49. CK 679. WBC 8.4, H and H 13.7/40.4. No thrombocytopenia. Upon arrival to the hospital, creatinine 1.5, GFR of 58. Back in April 2020, creatinine 2.4, GFR of 34. Renal ultrasound, mild right-sided hydronephrosis 9.6/10.2, left side no hydro. The patient had contrast also yesterday. Has a 3 mm stone on the UPJ with right hydro. Assessment And Plan: 1. Acute kidney injury, multifactorial. 2. Obstructive uropathy superimposed with poor perfusion, acute tubular necrosis secondary to hydrochlorothiazide and ARB, superimposed with contrast induced nephropathy twice yesterday and today. I agree with Mucomyst. 3. Keep holding hydrochlorothiazide and ARB. 4. We will start gentle bicarb drip. 5. We will consider urology evaluation. 6. We will follow up with the patient closely. 7. Hypokalemia with the presence of acute kidney injury, will be cautiously replaced. 8. We will send for magnesium level. 9. Marginal rhabdo. Continue hydration. 10. Obstructive uropathy, nephrolithiasis. We will consult Urology. 11. Coronary artery disease status post contrast. Continue Mucomyst. 12. Hypertension with the presence of hypokalemia. I am going to send for aldosterone and plasma renin activity. Discontinue hydrochlorothiazide and losartan. I agree with the current combination of amlodipine. We will consider to switch clonidine to beta-cayden giving the cardiac presentation. Time spent discussing with the patient, examining the patient, exam [id number], placing order, discussing with staff and other consulting include Primary 45 minutes. OSIRIS Voice ID: [id number] Report ID: [id number] MTDD
--- NOTE | 2020-11-12 00:04 | EKG ---
Test Date: 2020-11-10 Test Time: 06:15:13 Hot Walker: TERRY MEASUREMENT RESULTS: Intervals: Rate: 83 MN: 182 QRSD: 74 QT: 406 QTc: 477 [place]: P: 63 MN: 182 QRS: 31 T: 29 INTERPRETIVE STATEMENTS: Normal sinus rhythm Normal ECG Compared to ECG 01/03/2017 12:17:35 Sinus bradycardia no longer present Electronically Signed On 11-11-20 23:59:04 CREW TEAM MEMBER by Demarco Villar
[2020-11-12 00:14] LABS: Urine Appearance CLEAR; Urine Bilirubin NEGATIVE (NEG); Urine Blood 1+ (NEG); Urine Color YELLOW; Urine Glucose NEGATIVE (NEG); Urine Protein NEGATIVE (NEG); Urine pH 5.5 (5.0-7.0)
[2020-11-12 00:15] LABS: Urine Microscopic Reflex ORDER UMIC
[2020-11-12 00:26] LABS: Urine Protein/Creatinine Ratio 0.11 ratio (<0.15)
[2020-11-12 01:00] LABS: Urine Bacteria <20 /HPF (NONE SEEN); Urine Mucus SLIGHT /HPF (NONE SEEN); Urine RBC <5 /HPF (NONE SEEN); Urine Urothelial Cells <5 /HPF (NONE SEEN)
[2020-11-12 05:09] LABS: Albumin 3.4 g/dL (3.4-5.0); Phosphorus 2.4 mg/dL (2.5-4.9); Potassium 3.2 mmol/L (3.5-5.1); Thyroid Stimulating Hormone 1.09 uIU/mL (0.360-3.740)
[2020-11-12] MEDS ORDERED: carvediloL 3.125 MG TAB PO SCH (06:00)
[2020-11-12 06:59] LABS: Rheumatoid Factor NEG (NEG)
[2020-11-12 08:32] VITALS: BP 132/76; TEMP 97
[2020-11-12] MEDS: HEPARIN 5000 UNIT/ML 1 ML VIAL SQ SCH (08:54)
--- NOTE | 2020-11-12 08:54 | P.HP ---
Certification for Inpatient Patient admitted to: Inpatient With expected LOS: >2 Midnights Patient will require the following post-hospital care: None Practitioner: I am a practitioner with admitting privileges, knowledge of patient current condition, hospital course, and medical plan of care. Services: Services provided to patient in accordance with Admission requirements found in Title 42 Section 412.3 of the Code of Federal Regulations Patient History Date of Service: 11/10/20 Reason for admission: Acute myocardial infarction History of Present Illness: Patient is a 44-year-old gentleman who came to the hospital with chest discomfort. Patient also has a history of poorly-controlled hypertension. His blood pressure is been elevated. He came into the emergency room for further evaluation. In the ER he was found have an elevated troponin. He appears to possibly have a non STEMI. He also has chronic kidney disease. He has not been diagnosed with much because he has not seen a doctor in a long time. He gets his blood pressure medications but does not really take them regularly. At this time, will he will be admitted to the hospital for further evaluation. Will monitor his troponins serially. With this chest discomfort and elevated troponin it appears that he may have a non ST-elevation myocardial infarction. Will probably do all cardiac catheterization pending cardiology evaluation. Allergies No Known Drug Allergies Allergy (Verified 11/10/20 19:38) Unknown No Known Allergies Allergy (Uncoded 01/10/16 05:15) Unknown Home Medications: lisinopriL [Lisinopril] 10 mg PO DAILY 11/10/20 - Past Medical/Surgical History Has patient received pneumonia vaccine in the past: No Diabetic: No -: HTN Past Surgical History: Patient denies surgical history - Family History Father Family History: Reviewed- Non-Contributory - Social History Smoking Status: Never smoker Alcohol use: No CD- Drugs: No Caffeine use: No Place of Residence: Home Review of Systems 10-point ROS is otherwise unremarkable Physical Examination - Vital Signs Temperature: 97.0 F Blood Pressure: 132/76 Pulse: 64 Respirations: 17 Pulse Ox (%): 98 - Physical Exam General: Alert, In no apparent distress, Oriented x3 HEENT: Atraumatic, PERRLA, Mucous membr. moist/pink, EOMI, Sclerae nonicteric Neck: Supple, 2+ carotid pulse no bruit, No LAD, Without JVD or thyroid abnormality Respiratory: Clear to auscultation bilaterally, Normal air movement Cardiovascular: Regular rate/rhythm, Normal S1 S2, Systolic murmur Gastrointestinal: Normal bowel sounds, Soft and benign, Non-distended, No tenderness Musculoskeletal: No clubbing, No swelling, No tenderness Integumentary: No rashes Neurological: Normal gait, Normal speech, Normal strength at 5/5 x4 extr, Normal tone, Sensation intact, Cranial nerves 3-12 intact, Normal affect Lymphatics: No axilla or inguinal lymphadenopathy Assessment & Plan - Problems (Diagnosis) (1) Non-STEMI (non-ST elevated myocardial infarction) Current Visit: Yes Status: Acute (2) Chest pain Current Visit: Yes Status: Acute (3) Uncontrolled hypertension Current Visit: Yes Status: Acute (4) Chronic kidney disease Current Visit: Yes Status: Acute - Plan 1. Serial troponins and EKG 2. Appreciate Cardiology consultation 3. Possible cardiac catheterization in the morning 4. Anti-platelet therapy, anti coagulation, beta-cayden, statin, and O2 as needed 5. IV morphine for pain 6. Nitro p.r.n. 7. Monitor renal function 8. Strict blood pressure control 9. GI and DVT prophylaxis Discharge Plan: Home Plan to discharge in: Greater than 2 days - Advance Directives Does patient have a Living Will: No Does patient have a Durable POA for Healthcare: No - Code Status/Comfort Care Code Status Assessed: Yes Code Status: Full Code Critical Care: No Time Spent Managing PTS Care (In Minutes): 45
[2020-11-12] MEDS: ACETYLCYST 20% 800 MG/4 ML VIAL PO SCH (08:55)
[2020-11-12] MEDS: AMLODIPINE 10 MG TAB PO SCH (08:55)
--- NOTE | 2020-11-12 08:55 | P.PN ---
Subjective Date of Service: 11/11/20 Subjective: No new changes, No C/O voiced Patient status post cardiac catheterization. Patient with significant coronary artery disease but nothing were he needs stent placement. Need continue medical management. Patient also has elevated renal function and will hydrate and recheck renal function in a.m. Review of Systems 10-point ROS is otherwise unremarkable Physical Examination - Vital Signs Temperature: 97.0 F Blood Pressure: 132/76 Pulse: 64 Respirations: 17 Pulse Ox (%): 98 - Physical Exam General: Alert, In no apparent distress, Oriented x3 HEENT: Atraumatic, PERRLA, EOMI Neck: Supple, JVD not distended Respiratory: Clear to auscultation bilaterally, Normal air movement Cardiovascular: Regular rate/rhythm, Normal S1 S2 Gastrointestinal: Normal bowel sounds, No tenderness Musculoskeletal: No tenderness Integumentary: No rashes Neurological: Normal speech, Normal tone, Normal affect Lymphatics: No axilla or inguinal lymphadenopathy - Studies Medications List Reviewed: Yes Assessment & Plan - Problems (Diagnosis) (1) Non-STEMI (non-ST elevated myocardial infarction) Current Visit: Yes Status: Acute (2) Chest pain Current Visit: Yes Status: Acute (3) Uncontrolled hypertension Current Visit: Yes Status: Acute (4) Chronic kidney disease Current Visit: Yes Status: Acute - Plan 1. Serial troponins and EKG 2. Appreciate Cardiology consultation 3. Status post cardiac catheterization with diffuse coronary artery disease but no blockages needing intervention. Continue with medical management as mentioned below 4. Anti-platelet therapy, anti coagulation, beta-cayden, statin, and O2 as needed 5. IV morphine for pain 6. Nitro p.r.n. 7. Creatinine is elevated and we started Mucomyst and a bicarb drip. Repeat in the morning 8. Strict blood pressure control 9. GI and DVT prophylaxis Discharge Plan: Home Plan to discharge in: Greater than 2 days - Advance Directives Does patient have a Living Will: No Does patient have a Durable POA for Healthcare: No - Code Status/Comfort Care Code Status: Full Code Critical Care: No Time Spent Managing PTS Care (In Minutes): 35
[2020-11-12] MEDS ORDERED: cloNIDine HCL 0.1 MG TAB PO SCH (09:00)
--- NOTE | 2020-11-12 11:06 | RAD REPORT ---
EXAM DESCRIPTION: CT - Head Brain Wo Cont - 11/12/2020 6:53 am CLINICAL HISTORY: Altered mental status COMPARISON: CT head 01/09/2016 TECHNIQUE: Head/brain axial images acquired without contrast. Coronal and sagittal reformats created . Exam performed according to departmental dose-optimization program which includes automated exposur e control, adjustment of mA and/or kV according to patient size, and/or use of iterative reconstructi on technique. FINDINGS: No midline shift, mass effect, intracranial hemorrhage, or hydrocephalus. Multifocal small bilateral peripheral periventricular cerebral and bilateral cerebellar hemisphere ca lcifications reidentified. These may represent congenital infection or tuberous sclerosis. Enlarged cisterna magna (normal variant). Partially-imaged left maxillary sinus shows marked opacification. Mastoid air cells clear. No skull fracture. IMPRESSION: No CT evidence of acute intracranial abnormality. Other findings described above. Electronically signed by: Cj Palmer MD 11/12/2020 5:46 AM WASH HOUSE SUPERVISOR Due to temporary technical issues with the PACS/Fluency reporting system, reports are being signed by the in house radiologist without review as a courtesy to ensure prompt reporting. The interpreting r adiologist is fully responsible for the content of the report.
[2020-11-12 11:19] VITALS: O2SAT 98
--- NOTE | 2020-11-12 17:58 | PN ---
Date of Progress Note: 11/12/2020 Subjective: The patient was admitted with uncontrolled hypertension. The patient was found to have acute kidney injury secondary to contrast-induced nephropathy. The patient is feeling better. Physical Examination: Vital Signs: Blood pressure 132/76, pulse of 64, afebrile. Chest: Clear to auscultation. Heart: S1, S2. Regular. Abdomen: Soft. Nontender. Extremities: No edema. Neuro: Alert, oriented. No focality. Lab Data: WBC 8.4, H and H 13.7/40.3. Sodium 139, potassium of 3.2, bicarb 28, BUN 27, creatinine 1.5, yesterday it was 2.3, GFR up to 58, calcium 8.3, phosphorus 2.4, PTH 129, cortisol of 3, TSH 1. P/C ratio 0.1. Renal ultrasound, normal size kidney 9.6/10.2. Assessment And Plan: 1. Acute kidney injury multifactorial, obstructive uropathy supported with the CT, superimposed with contrast-induced nephropathy, superimposed with hydrochlorothiazide and ARB, on the recovery phase. I am going to discontinue IV fluids. Discontinue bicarb. The patient is cleared from the renal standpoint for discharge planning to follow up in the office in 2 weeks. 2. Hypertension, not controlled with the presence of black race and hypokalemia, primary hyper although needs to be ruled out. We sent for cortisol, within normal limit. Waiting for plasma renin activity and aldosterone. We will follow up. 3. Obstructive uropathy with hydronephrosis. Need follow up with Urology. We will start the patient on Flomax. 4. Mild rhabdo, recovered. Discontinue hydration. 5. Coronary artery disease status post angiogram, cardiac cath. We will follow up with Cardiology. 6. Hypokalemia. We will supplement. 7. Secondary hyperpara, secondary to renal failure. Calcium on the goal. No need for supplement or vitamin D. We will follow up. Time spent discussing with the patient, examining the patient, exam [id number], placing order, discussing with staff and other consulting include Primary 45 minutes. OSIRIS Voice ID: [id number] Report ID: [id number] ATILIO
--- NOTE | 2020-11-13 09:10 | ECHO ---
HEIGHT: 5 ft 8 in WEIGHT: 219 lb 12.8 oz DATE OF STUDY: 11/12/[address]: Rose Marie Avilez MD 2-DIMENSIONAL: YES M.MODE: YES DOPPLER: YES COLOR FLOW: YES TDS: NO PORTABLE: NO DEFINITY: NO BUBBLE STUDY: NO DIAGNOSIS: CHEST PAIN, RULE OUT ACS CARDIAC HISTORY: CATHERIZATION: YES SURGERY: NO PROSTHETIC VALVE: NO PACEMAKER: NO MEASUREMENTS (cm) DIASTOLIC (NORMALS) SYSTOLIC (NORMALS) IVSd 1.2 (0.6-1.2) LA Diam 2.6 (1.9-4.0) LVEF 61% LVIDd 4.4 (3.5-5.7) LVIDs 3.0 (2.0-3.5) %FS 33% LVPWd 1.2 (0.6-1.2) Ao Diam 2.8 (2.0-3.7) 2 DIMENSIONAL ASSESSMENT: RIGHT ATRIUM: NORMAL LEFT ATRIUM: NORMAL RIGHT VENTRICLE: NORMAL LEFT VENTRICLE: NORMAL TRICUSPID VALVE: NORMAL MITRAL VALVE: NORMAL PULMONIC VALVE: NORMAL AORTIC VALVE: NORMAL PERICARDIAL EFFUSION: NONE AORTIC ROOT: NORMAL LEFT VENTRICULAR WALL MOTION: NORMAL DOPPLER/COLOR FLOW: NORMAL COMMENTS: NORMAL 2D ECHOCARDIOGRAM WITH DOPPLER. NO WALL MOTION ABNORMALITY. NO EFFUSION. TECHNOLOGIST: Jimena WARREN
[2020-11-14 18:43] LABS: Hepatitis C Virus RNA (PCR)log <1.18 log IU/mL
[2020-11-15 14:10] LABS: HIV AG/AB 4TH GEN Non-reactive (Non-reactive)
[2020-11-16 10:14] LABS: Vitamin D 1,25-Dihydroxy Total 46 pg/mL (18-72); Vitamin D,1,25-OH2, D2 <8 pg/mL
[2020-11-18 03:08] LABS: HBsAG Nonreactive (Nonreactive)
[2020-11-20 21:41] LABS: Albumin, (SPE) 3.5 g/dL (3.8-4.8); Alpha-1-Globulins 0.3 g/dL (0.2-0.3); Alpha-2-Globulins 0.6 g/dL (0.5-0.9); Gamma Globulins 1.1 g/dL (0.8-1.7); INTERPRETATION REPORT
--- NOTE | 2020-12-02 02:54 | P.DS ---
Discharge Date: 11/12/20 Disposition: ROUTINE DISCHARGE Discharge Condition: GOOD Reason for Admission: Acute myocardial infarction Consultations: Cardiology-Cardiac catheterization - Problems (1) Non-STEMI (non-ST elevated myocardial infarction) Status: Acute (2) Chest pain Status: Acute (3) Uncontrolled hypertension Status: Acute (4) Chronic kidney disease Status: Acute Brief History of Present Illness: Patient is a 44-year-old gentleman who came to the hospital with chest discomfort. Patient also has a history of poorly-controlled hypertension. His blood pressure is been elevated. He came into the emergency room for further evaluation. In the ER he was found have an elevated troponin. He appears to possibly have a non STEMI. He also has chronic kidney disease. He has not been diagnosed with much because he has not seen a doctor in a long time. He gets his blood pressure medications but does not really take them regularly. At this time, will he will be admitted to the hospital for further evaluation. Will monitor his troponins serially. With this chest discomfort and elevated troponin it appears that he may have a non ST-elevation myocardial infarction. Will probably do all cardiac catheterization pending cardiology evaluation. Hospital Course: Patient was taken to the cardiac catheterization lab and had a angiogram. There was no surgical intervention. Patient will be medically managed. Vital Signs/Physical Exam: Temp Pulse Resp BP Pulse Ox 97.0 F 64 17 132/76 98 11/12/20 08:55 11/12/20 08:55 11/12/20 08:55 11/12/20 08:55 11/12/20 08:55 General: Alert, In no apparent distress, Oriented x3 Laboratory Data at Discharge: WBC 8.40 K/uL (4.3-10.9) 11/11/20 05:33 Hgb 13.7 g/dL (13.6-17.9) 11/11/20 05:33 Hct 40.4 % (39.6-49.0) 11/11/20 05:33 Plt Count 262 K/uL (152-406) 11/11/20 05:33 PT 11.1 SECONDS (9.5-12.5) 11/10/20 06:22 INR 0.97 11/10/20 06:22 Sodium 139 mmol/L (136-145) 11/12/20 04:14 Potassium 3.2 mmol/L (3.5-5.1) L 11/12/20 04:14 BUN 27 mg/dL (7-18) H 11/12/20 04:14 Creatinine 1.57 mg/dL (0.55-1.3) H 11/12/20 04:14 Glucose 111 mg/dL (74-106) H 11/12/20 04:14 Uric Acid 7.9 mg/dL (3.5-7.2) H 11/11/20 15:39 Phosphorus 2.4 mg/dL (2.5-4.9) L 11/12/20 04:14 Magnesium 2.1 mg/dL (1.8-2.4) 11/11/20 05:33 Total Bilirubin 0.8 mg/dL (0.2-1.0) 11/11/20 05:33 AST 22 U/L (15-37) 11/11/20 05:33 ALT 36 U/L (12-78) 11/11/20 05:33 Alkaline Phosphatase 85 U/L (45-117) 11/11/20 05:33 Troponin I 0.15 ng/mL (0.0-0.045) H 11/10/20 18:09 Home Medications: Amlodipine [Norvasc*] 10 mg PO DAILY #30 tab 11/12/20 Aspirin [Aspirin EC 81 MG] 81 mg PO DAILY #30 tablet. 11/12/20 Atorvastatin Calcium [Lipitor] 40 mg PO DAILY #30 tablet 11/12/20 carvediloL [Coreg*] 3.125 mg PO BID 6AM 6PM #60 tab 11/12/20 cloNIDine HCL [Catapres*] 0.1 mg PO BID #60 tab 11/12/20 New Medications: Aspirin [Aspirin EC 81 MG] 81 mg PO DAILY #30 tablet. cloNIDine HCL [Catapres*] 0.1 mg PO BID #60 tab carvediloL [Coreg*] 3.125 mg PO BID 6AM 6PM #60 tab Atorvastatin Calcium [Lipitor] 40 mg PO DAILY #30 tablet Amlodipine [Norvasc*] 10 mg PO DAILY #30 tab Physician Discharge Instructions: OK TO DC IV AND DC HOME FOLLOW-UP WITH PRIMARY CARE PROVIDER IN 1-2 WEEKS FOLLOW-UP WITH CARDIOLOGY and Nephrology IN 1-2 WEEKS fOLLOW-UP WITH UROLOGY FOR KIDNEY STONES IN 1-2 WEEKS; IF SEVERE FLANK PAIN RETURN TO THE ER RETURN TO THE ER IF symptoms worsen CALL or TEXT DR. MEJIA AT [phone] IF ANY QUESTIONS REGARDING HOSPITAL STAY. PLEASE CALL THE FLOOR AT [phone] IF ANY MEDICATION OR NURSING QUESTIONS. Diet: AHA Activity: Fall precautions Followup: Jack Benitez MD [ACTIVE - CAN ADMIT] - Demarco Villar MD [ACTIVE - CAN ADMIT] - NONE,NONE [Primary Care Provider] - Crow Jerry [ACTIVE - CAN ADMIT] - Time spent managing pt's care (in minutes): 35
== END 2020-11-12 11:56 | disposition home or self-care (01) | DRG 280 ==
LOC: ER 06:04 → ERHOLD 10:25 → 2ND 17:14 → OBSVTOIN 11-11 09:30
PROVIDERS: ADMIT Hospitalist; ATTEND Hospitalist
PROC: 4A023N7 Measurement of Cardiac Sampling and Pressure, Left Heart, Percutaneous Approach (ICD-10-PCS; principal; 2020-11-10)
PROC: B2111ZZ Fluoroscopy of Multiple Coronary Arteries using Low Osmolar Contrast (ICD-10-PCS; 2020-11-10)
DX: I21.4 Non-ST elevation (NSTEMI) myocardial infarction (principal); N17.0 Acute kidney failure with tubular necrosis; I16.9 Hypertensive crisis, unspecified; M62.82 Rhabdomyolysis; N25.81 Secondary hyperparathyroidism of renal origin; N14.1 Nephropathy induced by other drugs, medicaments and biological substances; T50.8X5A Adverse effect of diagnostic agents, initial encounter; N13.9 Obstructive and reflux uropathy, unspecified; E87.6 Hypokalemia; I25.10 Atherosclerotic heart disease of native coronary artery without angina pectoris; I12.9 Hypertensive chronic kidney disease with stage 1 through stage 4 chronic kidney disease, or unspecified chronic kidney disease; N18.9 Chronic kidney disease, unspecified; Z79.899 Other long term (current) drug therapy; Z20.822 Contact with and (suspected) exposure to COVID-19
CPT/HCPCS: 36415; 70450; 71045; 71275; 74175; 76770; 80048; 80053; 80069; 80076; 81003; 81015; 82088; 82533; 82553; 82570; 82652; 83520; 83735; 83880; 83970; 84100; 84156; 84165; 84244; 84443; 84484; 84550; 85025; 85610; 86021; 86160; 86225; 86430; 86704; 86706; 87340; 87389; 87522; 93005; 93306; 93454; 96374; 99285; C1760; C1893; G0378; J0583; J1644; J1940; J2250; J3010; J7040; Q9967; U0003

== ENCOUNTER 2021-07-18 18:48 | Emergency (ER) | payer BC ==
--- NOTE | 2021-07-18 19:10 | ER ---
Nurse's Notes [facility] Name: Bertrand Sheth Age: 45 yrs Sex: Male : 1975 Arrival Date: 07/18/2021 Time: 18:53 Bed 14 Private MD: Diagnosis: Acute upper respiratory infection, unspecified-RSV Presentation: 07/18 18:57 Chief complaint: Patient states: "I've had a cold for a few days and I went to the aa5 doctor and I just got the result for positive for RSV". Pt states "I just wanted to get checked out because of the positive result". Coronavirus screen: congestion, cough unrelated to allergies. Ebola Screen: No symptoms or risks identified at this time. Initial Sepsis Screen: Does the patient meet any 2 criteria? No. Patient's initial sepsis screen is negative. Does the patient have a suspected source of infection? Yes:. Risk Assessment: Do you want to hurt yourself or someone else? Patient reports no desire to harm self or others. Onset of symptoms was June 2021. 18:57 Acuity: ELIZABETH 4 aa5 18:57 Method Of Arrival: Ambulatory 5 Triage Assessment: 19:14 General: Appears in no apparent distress. comfortable, Behavior is calm, cooperative. jt3 Pain: Denies pain. Respiratory: Breath sounds are diminished bilaterally. 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 - Social history:: Smoking status: Patient denies any tobacco usage or history of. Screenin:16 Abuse screen: Denies threats or abuse. Denies injuries from another. Nutritional jt3 screening: No deficits noted. Tuberculosis screening: No symptoms or risk factors identified. Never had TB. Possible symptoms:. Fall Risk No IV (0 pts). Ambulatory Aid- None/Bed Rest/Nurse Assist (0 pts). Gait- Normal/Bed Rest/Wheelchair (0 pts) Mental Status- Oriented to own ability (0 pts). Assessment: 19:16 Cardiovascular: Heart tones S1 S2 Capillary refill is brisk Clubbing of nail beds is jt3 absent Patient's skin is warm and dry. Respiratory: Airway is patent Trachea midline Respiratory effort is even, unlabored, Respiratory pattern is regular, Sputum is. Vital Signs: 18:57 BP 184 / 105; Pulse 72; Resp 18 S; Temp 97.5(TE); Pulse Ox 100% on R/A; aa5 19:15 BP 164 / 90; Pulse 74; Resp 17; Temp 98.1; Pulse Ox 99% on R/A; jt3 ED Course: 18:53 Patient arrived in ED. as 18:56 [facility] kb 18:56 Rose Marie Ramirez MD is Attending Physician. kb 18:57 Arm band placed on. aa5 19:00 Triage completed. aa5 19:01 Patient has correct armband on for positive identification. Bed in low position. Call jt3 light in reach. Side rails up X2. 19:03 Stew Robb, RN is Primary Nurse. jt3 19:17 No provider procedures requiring assistance completed. Patient did not have IV access jt3 during this emergency room visit. Administered Medications: No medications were administered Outcome: 19:09 Discharge ordered by MD. kb 19:17 Discharged to home ambulatory. jt3 19:17 Condition: stable 19:17 Discharge instructions given to patient, Instructed on discharge instructions, follow up and referral plans. 19:51 Patient left the ED. jt3 Signatures: Caro Vale FNP-C FNP-Ckb Martinez, Amelia as Calderon, Audri, RN RN aa5 Stew Robb, JETT RN jt3
--- NOTE | 2021-07-18 19:10 | EDPHYS ---
Physician Documentation [facility] Name: Bertrand Sheth Age: 45 yrs Sex: Male : 1975 Arrival Date: 07/18/2021 Time: 18:53 Bed 14 Private MD: ED Physician Rose Marie Ramirez HPI: 07/18 19:03 This 45 yrs old Black Male presents to ER via Ambulatory with complaints of Cough, kb Congestion, Shortness Of Breath - rsv+. 19:03 The patient has not experienced similar symptoms in the past. The patient has not kb recently seen a physician. 19:03 The patient or guardian reports cough, that is intermittent, described as mild. Onset: kb The symptoms/episode began/occurred 3 day(s) ago. Severity of symptoms: At their worst the symptoms were mild, in the emergency department the symptoms are unchanged. Modifying factors: The symptoms are alleviated by nothing, the symptoms are aggravated by nothing. Associated signs and symptoms: Pertinent positives: rhinorrhea, Pertinent negatives: chest pain, diarrhea, ear ache, fever, nausea, sore throat, vomiting. Pt reports he has had a cough, congestion and runny nose for 3 days. Was tested for rsv, flu and covid at a clinic and today received a positive RSV result so his family member told him to come to the ER for treatment. . 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 - Social history:: Smoking status: Patient denies any tobacco usage or history of. ROS: 19:05 Constitutional: Negative for fever, chills, and weight loss. kb 19:05 ENT: Positive for rhinorrhea, sinus congestion. 19:05 Respiratory: Positive for cough. 19:05 All other systems are negative. Exam: 19:05 Constitutional: This is a well developed, well nourished patient who is awake, alert, kb and in no acute distress. Head/Face: Normocephalic, atraumatic. ENT: Moist Mucous membranes Cardiovascular: Regular rate and rhythm with a normal S1 and S2. No gallops, murmurs, or rubs. No pulse deficits. Respiratory: Respirations even and unlabored. No increased work of breathing, no retractions or nasal flaring. Skin: Warm, dry with normal turgor. Normal color. MS/ Extremity: Pulses equal, no cyanosis. Neurovascular intact. Full, normal range of motion. Neuro: Awake and alert, GCS 15, oriented to person, place, time, and situation. Moves all extremities. Normal gait. Psych: Awake, alert, with orientation to person, place and time. Behavior, mood, and affect are within normal limits. Vital Signs: 18:57 BP 184 / 105; Pulse 72; Resp 18 S; Temp 97.5(TE); Pulse Ox 100% on R/A; aa5 19:15 BP 164 / 90; Pulse 74; Resp 17; Temp 98.1; Pulse Ox 99% on R/A; jt3 MDM: 19:02 Patient medically screened. kb 19:05 Data reviewed: vital signs, nurses notes. Data interpreted: Pulse oximetry: on room air kb is 100 %. Interpretation: normal. Counseling: I had a detailed discussion with the patient and/or guardian regarding: the historical points, exam findings, and any diagnostic results supporting the discharge/admit diagnosis, the need for outpatient follow up, a family practitioner, to return to the emergency department if symptoms worsen or persist or if there are any questions or concerns that arise at home. 19:05 ED course: Pt states he has high blood pressure and is supposed to take medication, but kb hasn't picked it up from the pharmacy. Pt is asymptomatic of blood pressure. Administered Medications: No medications were administered Disposition Summary: 07/18/21 19:09 Discharge Ordered Location: Home kb Condition: Stable kb Diagnosis - Acute upper respiratory infection, unspecified - RSV kb Followup: kb - With: Emergency Department - When: As needed - Reason: Worsening of condition Followup: kb - With: Private Physician - When: 2 - 3 days - Reason: Recheck today's complaints, Continuance of care, Re-evaluation by your physician Discharge Instructions: - Discharge Summary Sheet kb - Upper Respiratory Infection, Adult, Jhuz-[id number] kb - Viral Respiratory Infection, Aqgo-Lp-Unoi kb Forms: - Medication Reconciliation Form kb - Thank You Letter kb - Antibiotic Education kb - Prescription Opioid Use kb Addendum: 07/20/2021 23:03 Co-signature as Attending Physician, Rose Marie Ramirez MD. m a2 Signatures: Caro Vale, NICO-C EARLY CHILDHOOD EDUCATOR AIDE-Mai Falk, RN RN aa5 Rose Marie Ramirez MD MD ma2 Stew Robb RN RN jt3 Corrections: (The following items were deleted from the chart) 07/18 19:09 19:05 ED course: Pt states he has high blood pressure and is supposed to take kb medication, but hasn't picked it up from the pharmacy. kb
[2021-07-18 19:58] VITALS: BP 164/90; TEMP 98.1; O2SAT 99
== END 2021-07-18 19:51 | disposition home or self-care (01) ==
LOC: ER 18:48
DX: J06.9 Acute upper respiratory infection, unspecified (principal); B97.4 Respiratory syncytial virus as the cause of diseases classified elsewhere; I10 Essential (primary) hypertension
CPT/HCPCS: 99281

== ENCOUNTER 2023-01-13 09:45 | Emergency (ER) | payer BC, SELFPAY ==
--- OUTSIDE RECORDS SUMMARY | 2023-01-13 09:48 | XMS REPORT | Continuity of Care Document ---
:1975 Author Organization [facility] t Address [address] [place] [address] Care Team Providers Name Role Phone PCP, PATIENT DOES NOT HAVE A Primary Care Physician Unavaila ble Doctor Unassigned, [place] Attending Clinician Unavailable YANDEL PEMBERTON Attending Clinician Unavailable Yandel Pemberton MD Attending Clinician Problems Condition Condition Condition Status Onset Resolution Last Treating Co mments Source Name Details Category Date Date Treatment Clinician Date Hydrocele Hydrocele Disease Active Overview: [facility] 12-17 Formattin ity of 00:00: g of this [place] 00 note Medical might be Branch different from the original. 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 Allergies, Adverse Reactions, Alerts Allergy Allergy Status Severity Reaction(s) Onset Inactive Treating Comm ents Source Name Type Date Date Clinician NO KNOWN Drug Active Univers ALLERGIE Class ity of S [facility] Social History Social Habit Start Date Stop Date Quantity Comments Source Exposure to 2022-05-30 2022-06-09 Not sure [facility]-CoV-2 00:00:00 15:43:00 [facility] (event) Branch Alcohol intake 2022-06-09 2022-06-09 Ex-drinker [facility] 00:00:00 00:00:00 (finding) [facility] Tobacco use and 2022-06-09 2022-06-09 Smokeless tobacco Un iversity of exposure 00:00:00 00:00:00 non-user [facility] Sex Assigned At [birth year] Universit y of 00:00:00 00:00:00 [facility] Smoking Status Start Date Stop Date Source Never smoked tobacco [facility] Medications Ordered Filled Start Stop Current Ordering Indication Dosage Frequency Signature Comments Components Source Medication Medication Date Date Medication? Clinician (SIG) Name Name amLODIPine 2021-0 Yes 10mg Take 10 mg U nivers 10 mg 9-19 by mouth ity of tablet 00:00: in the [place] [address] morning. Medical Branch carvediloL 2021-0 Yes 25mg Take 25 mg U nivers 25 mg 9-19 by mouth ity of tablet 00:00: in the [place] morning Medical and 25 mg Branch in the evening. amLODIPine 2022-0 Yes 10mg Take 10 mg U nivers 10 mg 9-19 by mouth ity of tablet 00:00: in the [place] [address] morning. Medical Branch carvediloL 2021-0 Yes 25mg Take 25 mg U nivers 25 mg 9-19 by mouth ity of tablet 00:00: in the [place] morning Medical and 25 mg Branch in the evening. amLODIPine 2021-0 Yes 10mg Take 10 mg U nivers 10 mg 9-19 by mouth ity of tablet 00:00: in the [place] [address] morning. Medical Branch carvediloL 2021-0 Yes 25mg Take 25 mg U nivers 25 mg 9-19 by mouth ity of tablet 00:00: in the [place] morning Medical and 25 mg Branch in the evening. amLODIPine 2021-0 Yes 10mg Take 10 mg U nivers 10 mg 9-19 by mouth ity of tablet 00:00: in the [place] morning. Medical Branch carvediloL 2021-0 Yes 25mg Take 25 mg U nivers 25 mg 9-19 by mouth ity of tablet 00:00: in the [place] morning Medical and 25 mg Branch in the evening. HYDROCODONE Yes 1-2 Tab Uni vers -ACETAMINOP 4-16 Oral ity of HEN 5-325 00:00: Q4HPRN [place] MG ORAL TAB 00 Medical Branch HYDROCODONE 0 Yes 1-2 Tab Uni vers -ACETAMINOP 4-16 Oral ity of HEN 5-325 00:00: Q4HPRN [place] MG ORAL TAB 00 Medical Branch HYDROCODONE 2009-0 Yes 1-2 Tab Uni vers -ACETAMINOP 4-16 Oral ity of HEN 5-325 00:00: Q4HPRN [place] MG ORAL TAB 00 [facility] Branch HYDROCODONE 2010-0 Yes 1-2 Tab Uni vers -ACETAMINOP 4-16 Oral ity of HEN 5-325 00:00: Q4HPRN [place] MG ORAL TAB 00 [facility] Branch Vital Signs Vital Name Observation Time Observation Value Comments Source Systolic blood 2022-06-09 21:02:00 146 mm[Hg] Univer sity of [facility] Diastolic blood 2022-06-09 21:02:00 85 mm[Hg] Unive rsity of [facility] Heart rate 2022-06-09 21:02:00 71 /min [facility] Body temperature 2022-06-09 21:00:00 37 [facility]ah [facility] height 2022-06-09 21:00:00 172.7 cm [facility] Body weight 2022-06-09 21:00:00 102.967 kg [facility] BMI 2022-06-09 21:00:00 34.52 kg/m2 [facility] Oxygen saturation in 2022-06-09 21:00:00 96 /min [facility] Arterial blood by [facility] Pulse oximetry Branch Procedures Procedure Date / Time Performing Clinician Source Performed AUTHORIZATION FOR 2022-06-15 05:01:00 Doctor Unabeau, No Univ [facility] RELEASE OF PHI Name [facility] Encounters Start End Encounter Admission Attending Care Care Encounter Source Date/Time Date/Time Type Type Clinicians Facility Department ID 2022-06-15 2022-06-15 Orders Doctor PEDERSEN [id number] Univers 00:00:00 00:00:00 Only Unassigned, TAMIKO [id number] ity of [place] [facility] [id number] A[place] as [id number] [place] [address] Branch 2022-06-09 2022-06-09 Outpatient R NIECY TNJUVENTINO [facility] [id number] Univers 15:40:00 16:44:52 YANDEL lawsy o f [facility] 2022-06-09 2022-06-09 Office Niecy TNJUVENTINO [id number] Univers 15:40:00 16:44:52 Visit Yandel BACH [id number] it and[facility] [id number] Breanne MENDOZA [id number] Pa dical NAL 059 Branch BUILDING Results Test Description Test Time Test Comments Results Result Comments Source COMPREHENSIVE METABOLIC PANEL 2022-07-06 04:01:15 Test Item Value Reference Range Interpretation Comme nts GLUCOSE (test code = 2216) 86 MG/DL 70-99 BUN (test code = 2207) 20 MG/DL 6-20 CREATININE (test code = 1.27 MG/DL 0.80-1.40 2213) eGFR (2020 CKD-EPI) (test 70 ML/MIN/1.73 >60 code = 96507) CALC BUN/CREAT (test code = 16 RATIO 6-28 2234) SODIUM (test code = 223) 141 MEQ/L 133-146 POTASSIUM (test code = 2228) 4.3 MEQ/L 3.5-5.4 CHLORIDE (test code = 2214) 102 MEQ/L 95-107 CARBON DIOXIDE (test code = 27 MEQ/L 19-31 2205) CALCIUM (test code = 220) 9.7 MG/DL 8.5-10.5 PROTEIN, TOTAL (test code = 7.3 G/DL 6.1-8.3 2228) ALBUMIN (test code = 220) 4.6 G/DL 3.5-5.2 CALC GLOBULIN (test code = 2.7 G/DL 1.9-3.7 2239) CALC A/G RATIO (test code = 1.7 RATIO 1.0-2.6 2233) BILIRUBIN, TOTAL (test code 0.5 MG/DL See_Comment [Automated message] The = 2206) system which ge nerated this result transmit savanah reference range: <=1.2. T he reference range was not u sed to interpret this result as normal/abnormal . ALKALINE PHOSPHATASE (test 103 U/L 40-118 code = 2204) AST (test code = 2218) 26 U/L 9-50 ALT (test code = 2219) 26 U/L 5-50 LIPID [id number] 04:01:15 Test Item Value Reference Range Interpretation Comments CHOLESTEROL (test 232 MG/DL <200 H code = 2210) TRIGLYCERIDES (test 318 MG/DL <150 H code = 2232) HDL CHOLESTEROL (test 33 MG/DL >39 L code = 2220) CALC LDL CHOL (test 150 MG/DL <100 H NOTE: C ALCULATED LDL code = 2237) IS BASED ON NATASHA-GOLDMAN METHOD WHICHINCLUDES ADJUSTABLE TRIGLYCERIDE:VL DL CHOLESTEROL RAT IO.THIS FACTOR VARIES B Y MEASURED TRIGLY CERIDE AND NON-HDLCHOL ESTEROL CONCENTRATIONS WITH INCREASED CALCU LATED LDL SEENIN HIGH ER TRIGLYCERIDE OR LOWER NON-HDL SPECIME NS. FOR MOREINFORMATION , SEE CLIENT ANNOUNCE MENT AT [email or web address] RISK RATIO LDL/HDL 4.55 RATIO <3.55 H UNLESS O THERWISE (test code = 2238) INDICATED , ALL TESTING PERFORMED [facility], [facility]. [address] [place] [id number] [place] [address] AMANDA DIRECTOR: VISHNU DENNISON M.D. CLIA NUMBER [id number] CAP ACCREDITATION N O. [id number]
--- NOTE | 2023-01-13 10:36 | RAD REPORT ---
EXAM DESCRIPTION: RAD - Mandible <4 Views - 01/13/2023 10:29 am CLINICAL HISTORY: dislocation?;Pain COMPARISON: No comparisons FINDINGS: No fracture or dislocation seen.
[2023-01-13] MEDS ORDERED: MIDAZOLAM HCL 2 MG/2 ML INJ ONE (10:56)
[2023-01-13] MEDS ORDERED: KETOROLAC 30 MG/ML INJ ONE (10:56)
[2023-01-13] MEDS ORDERED: ENALAPRILAT 1.25 MG/ML VIAL IV ONE (11:52)
--- NOTE | 2023-01-13 12:25 | ER ---
Nurse's Notes [facility] Name: Bertrand Sheth Age: 47 yrs Sex: Male : 1975 Arrival Date: 01/13/2023 Time: 09:45 Bed 2 Private MD: Diagnosis: Jaw Pain;Dental abscess Presentation: 01/13 09:49 Chief complaint: EMS states: patient was eating when he felt a pop and starting having ap3 left side jaw pain, and issues opening his mouth. Coronavirus screen: At this time, the client does not indicate any symptoms associated with coronavirus-19. Ebola Screen: No symptoms or risks identified at this time. Initial Sepsis Screen: Does the patient meet any 2 criteria? No. Patient's initial sepsis screen is negative. Does the patient have a suspected source of infection? No. Patient's initial sepsis screen is negative. Risk Assessment: Do you want to hurt yourself or someone else? Patient reports no desire to harm self or others. Onset of symptoms was January 13, 2023. 09:49 Method Of Arrival: EMS: [facility] ap3 09:49 Acuity: ELIZABETH 4 ap3 Triage Assessment: 09:50 General: Appears uncomfortable, Behavior is cooperative, appropriate for age. Pain: ap3 Complains of pain in left jaw Pain began suddenly. Neuro: Level of Consciousness is awake, alert, obeys commands, Oriented to person, place, time, situation. Cardiovascular: Patient's skin is warm and dry. Respiratory: Airway is patent Respiratory effort is even, unlabored, Respiratory pattern is regular, symmetrical. 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 - Social history:: Smoking status: Patient denies any tobacco usage or history of. Screenin:50 Abuse screen: Denies threats or abuse. Nutritional screening: No deficits noted. ap3 Tuberculosis screening: No symptoms or risk factors identified. 12:48 [facility] ED Fall Risk Assessment (Adult) History of falling in the last 3 months, ap3 including since admission. Assessment: 10:45 General: Appears in no apparent distress. Pain: Complains of pain in left jaw. Neuro: ph Hooks Agitation-Sedation Scale (RASS): 0 - Alert and Calm Level of Consciousness is awake, alert, obeys commands. Respiratory: Airway is patent Respiratory effort is even, unlabored. Vital Signs: 09:49 Pulse 67; Resp 17; Pulse Ox 100% ; Weight 104.33 kg; ap3 10:14 BP 205 / 104; ap3 11:07 BP 188 / 103; Pulse 72; Resp 18; Pulse Ox 100% on R/A; ph 11:53 BP 202 / 115; Pulse 65; Pulse Ox 100% ; ap3 12:22 BP 178 / 103; Pulse 61; Pulse Ox 100% ; ap3 Amelia Coma Score: 13:07 Eye Response: spontaneous(4). Motor Response: obeys commands(6). Verbal Response: kb oriented(5). Total: 15. 13:14 Eye Response: spontaneous(4). Motor Response: obeys commands(6). Verbal Response: kb oriented(5). Total: 15. ED Course: 09:46 Patient arrived in ED. ph 09:48 Demond Laura DO is Attending Physician. ms3 09:48 Sangeetha Gallagher, JETT is Primary Nurse. ap3 09:49 Caro Vale FNP-C is PHCP. kb 09:49 Triage completed. ap3 09:50 Arm band placed on right wrist. ap3 09:50 Patient has correct armband on for positive identification. Bed in low position. Call ap3 light in reach. Side rails up X 1. Pulse ox on. NIBP on. Door closed. Noise minimized. 10:30 Mandible (<4 Views) XRAY In Process Unspecified. EDMS 11:00 Inserted saline lock: 20 gauge in left antecubital area, using aseptic technique. ph 12:48 No provider procedures requiring assistance completed. IV discontinued, intact, ap3 bleeding controlled, No redness/swelling at site. Pressure dressing applied. Administered Medications: 11:06 Drug: Ketorolac IVP 15 mg Route: IVP; Site: left antecubital; ph 12:49 Follow up: Response: No adverse reaction ap3 11:06 Drug: Midazolam IVP or IV 2 mg Route: IVP; Site: left antecubital; ph 12:49 Follow up: Response: No adverse reaction ap3 11:53 Drug: Enalaprilat IV 0.625 mg Route: IV; Rate: calculated rate; Site: left antecubital; ap3 12:48 Follow up: IV Status: Completed infusion ap3 Medication: 12:48 VIS not applicable for this client. ap3 Outcome: 12:24 Discharge ordered by MD. may 12:48 Discharged to home via wheelchair, with family. ap3 12:48 Condition: good 12:48 Discharge instructions given to patient, Instructed on discharge instructions, follow up and referral plans. Demonstrated understanding of instructions, follow-up care, medications, Prescriptions given X 1. 12:49 Patient left the ED. ap3 Signatures: Dispatcher [employer] EDMS Caro Vale, CLOTH FEEDER-C CLOTH FEEDER-Lucille Walsh RN RN Sangeetha Westfall RN RN ap3 Demond Laura DO DO ms3
--- NOTE | 2023-01-13 12:25 | EDPHYS ---
Physician Documentation [facility] Name: Bertrand Sheth Age: 47 yrs Sex: Male : 1975 Arrival Date: 01/13/2023 Time: 09:45 Bed 2 Private MD: ED Physician Demond Laura HPI: 01/13 13:07 This 47 yrs old Black Male presents to ER via EMS with complaints of jaw pain. kb 13:07 The patient or guardian reports decreased movement, pain, tenderness. The complaints kb affect the left jaw. Context of injury: The problem was sustained at work, resulted from eating. Onset: The symptoms/episode began/occurred just prior to arrival. Associated signs and symptoms: Loss of consciousness: This patient did not experience any loss of consciousness. Pertinent positives: decreased movement of left jaw. Severity of symptoms: At their worst the symptoms were moderate, in the emergency department the symptoms are unchanged. The patient has not experienced similar symptoms in the past. The patient has not recently seen a physician. EMS reports pt was eating chicken, felt a pop in jaw and then couldn't open his mouth. States this has never happened before.. 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 - Social history:: Smoking status: Patient denies any tobacco usage or history of. ROS: 13:07 Constitutional: Negative for fever, chills, and weight loss. kb 13:07 ENT: Positive for jaw pain. 13:14 All other systems are negative. kb Exam: 13:15 Constitutional: This is a well developed, well nourished patient who is awake, alert, kb and in no acute distress. Head/Face: Normocephalic, atraumatic. Cardiovascular: Regular rate and rhythm with a normal S1 and S2. No gallops, murmurs, or rubs. No pulse deficits. Respiratory: Respirations even and unlabored. No increased work of breathing. Talking in full sentences Abdomen/GI: Soft, non-tender. No distention Skin: Warm, dry with normal turgor. Normal color. MS/ Extremity: Pulses equal, no cyanosis. Neurovascular intact. Full, normal range of motion. Neuro: Awake and alert, GCS 15, oriented to person, place, time, and situation. Moves all extremities. Normal gait. 13:15 Head/face: Noted is tenderness, that is moderate, of the left jaw. 13:15 ENT: Dental exam: abscess, that is mild, specifically in the lower left second bicuspid (#20), gum swelling, that is mild, pain. Vital Signs: 09:49 Pulse 67; Resp 17; Pulse Ox 100% ; Weight 104.33 kg; ap3 10:14 BP 205 / 104; ap3 11:07 BP 188 / 103; Pulse 72; Resp 18; Pulse Ox 100% on R/A; ph 11:53 BP 202 / 115; Pulse 65; Pulse Ox 100% ; ap3 12:22 BP 178 / 103; Pulse 61; Pulse Ox 100% ; ap3 [place] Coma Score: 13:07 Eye Response: spontaneous(4). Motor Response: obeys commands(6). Verbal Response: kb oriented(5). Total: 15. 13:14 Eye Response: spontaneous(4). Motor Response: obeys commands(6). Verbal Response: kb oriented(5). Total: 15. MDM: 09:48 Patient medically screened. ms3 13:14 Differential diagnosis: dislocation, fracture, dental abscess. Data reviewed: vital kb signs, nurses notes. Management of patient was discussed with the following: Dr Laura. Historians other than the Patient: EMS: [facility] [employer]. Counseling: I had a detailed discussion with the patient and/or guardian regarding: the historical points, exam findings, and any diagnostic results supporting the discharge/admit diagnosis, radiology results, the need for outpatient follow up, a dentist, to return to the emergency department if symptoms worsen or persist or if there are any questions or concerns that arise at home. 13:16 ED course: Pt was able to open mouth to speak and reported decreased pain after versed. kb Mother walked in and pt stopped opening mouth. Pt reported pain to gums on left side at that time. Small abscess noted to left side. Educated to follow up with dentist. Verbal understanding received. Pt is asymptomatic of BP, educated to follow up with PCP for ongoing HTN management. 01/13 09:48 Order name: Mandible (<4 Views) XRAY; Complete Time: 10:38 ms3 04/27 10:46 Order name: IV Start; Complete Time: 11:06 kb Administered Medications: 11:06 Drug: Ketorolac IVP 15 mg Route: IVP; Site: left antecubital; ph 12:49 Follow up: Response: No adverse reaction ap3 11:06 Drug: Midazolam IVP or IV 2 mg Route: IVP; Site: left antecubital; ph 12:49 Follow up: Response: No adverse reaction ap3 11:53 Drug: Enalaprilat IV 0.625 mg Route: IV; Rate: calculated rate; Site: left antecubital; ap3 12:48 Follow up: IV Status: Completed infusion ap3 Disposition: 19:04 Co-signature as Attending Physician, Demond Laura DO I was immediately available on-site ms3 in the Emergency Department for consultation in the care of the patient. Disposition Summary: 01/13/23 12:24 Discharge Ordered Location: Home kb Condition: Stable kb Diagnosis - Jaw Pain kb - Dental abscess kb Followup: kb - With: Emergency Department - When: As needed - Reason: Worsening of condition Followup: kb - With: Private Physician - When: 2 - 3 days - Reason: Recheck today's complaints, Continuance of care, Re-evaluation by your physician Discharge Instructions: - Discharge Summary Sheet kb - Dental Pain, [id number] kb - Dental Abscess, [id number]-[id number] kb Forms: - Medication Reconciliation Form kb - Thank You Letter kb - Antibiotic Education kb - Prescription Opioid Use kb Prescriptions: - Augmentin 875-125 mg Oral Tablet - take 1 tablet by ORAL route every 12 hours for 10 days; 20 tablet; Refills: 0, kb Product Selection Permitted Signatures: Dispatcher [employer] Caro De Souza, ESSENCE WALSH-Lucille Walsh RN RN Sangeetha Westfall RN RN Demond Sterling DO DO ms3
[2023-01-13 12:56] VITALS: O2SAT 100
[2023-01-13 13:03] VITALS: BP 178/103
== END 2023-01-13 12:49 | disposition home or self-care (01) ==
LOC: ER 09:45
DX: K04.7 Periapical abscess without sinus (principal)
CPT/HCPCS: 70100; J2250

== ENCOUNTER 2025-02-10 08:09 | Emergency (ER) | payer SELFPAY ==
[2025-02-10] MEDS ORDERED: MORPHINE 4 MG/ML SYR ONE (08:46)
[2025-02-10] MEDS ORDERED: ONDANSETRON 4 MG/2 ML VIAL ONE (08:46)
[2025-02-10] MEDS ORDERED: NA CHLORIDE 0.9% 1,000 ML ONE (08:47)
[2025-02-10 09:24] LABS: PT Prothrombin Time 12.1 SECONDS (10-13.0); Protime INR 1.06
[2025-02-10 09:35] LABS: Absolute Eosinophils 0.1 K/uL (0-0.5); Absolute Lymphocytes (CBC) 0.6 K/uL (0.7-4.9); Absolute Monocytes 0.5 K/uL (0.1-1.3); Absolute Neutrophil 6.2 K/uL (1.8-8.0); Basophils % 0.1 % (0-1.3); Eosinophils % 0.9 % (0-4.4); Hematocrit 44.9 % (39.6-49.0); Lymphocytes % 7.7 % (15.3-44.8); MCH 33.7 pg (27.0-35.0); MCHC 35.6 g/dL (32.0-36.0); MCV 94.9 fL (80-100); MPV 9.2 fL (7.6-11.3); Monocytes % 7.4 % (3.3-12.3); Neutrophils % 83.9 % (41.7-73.7); Nucleated Red Blood Cells % 0.1 % (0-0); Platelets 249 thou/uL (152-406); RBC Red Blood Cell Count 4.74 M/uL (4.33-5.43); Red Cell Distribution Width 12.9 % (12.1-15.2)
[2025-02-10 09:37] LABS: Albumin 3.9 g/dL (3.4-5.0); Albumin/Globulin Ratio 0.9 (1.1-1.8); Anion Gap 9.5 mEq/L (5.0-15.0); Bilirubin Direct 0.2 mg/dL (0-0.2); Bilirubin Indirect, Calculated 0.7 mg/dL (0.2-0.8); Bilirubin Total 0.9 mg/dL (0.2-1.0); Globulin 4.2 g/dL (2.3-3.5); Magnesium 1.9 mg/dL (1.6-2.4); Potassium 3.5 mEq/L (3.5-5.1); Protein, Total 8.1 g/dL (6.4-8.2); Troponin High Sensitivity 16.9 pg/mL (<58.9)
[2025-02-10 09:42] LABS: Specific Gravity 1.027 (1.005-1.030); Sqamous Epithelial <5 /HPF (None Seen); Urine Bacteria None Seen /HPF (<20); Urine Bilirubin NEGATIVE (Negative); Urine Blood Negative (Negative); Urine Clarity Clear (Clear); Urine Color Yellow (Yellow); Urine Culture Reflex Order NOT NEEDED; Urine Glucose NEGATIVE (Negative); Urine Ketones NEGATIVE (Negative); Urine Microscopic Reflex YN ORDER UMIC; Urine Mucus 1+ /HPF (None Seen); Urine Nitrite NEGATIVE (Negative); Urine Protein TRACE (Negative); Urine RBC <5 /HPF (None Seen); Urine Urobilinogen 2+ (Normal); Urine WBC <5 /HPF (<5); Urine pH 5.5 (5.0-7.0)
--- NOTE | 2025-02-10 09:57 | RAD REPORT ---
EXAMINATION: ONE VIEW CHEST XR CLINICAL INDICATION: Male, 49 years old.,COUGH TECHNIQUE: Frontal chest projection is submitted. Examination is limited by patient positioning and t echnique. COMPARISON: 11/10/2020 FINDINGS: The lungs are grossly clear although suboptimal inspiratory effort somewhat limits evaluation. No pn eumothorax or sizable effusion. The heart is normal in size. Mediastinal contours are unremarkable. IMPRESSION: No acute intrathoracic abnormalities.
[2025-02-10 09:58] LABS: Influenza A Ag Negative; Influenza B Ag Negative; SARS-CoV-2 Antigen Rapid Res Negative (Negative)
--- NOTE | 2025-02-10 11:24 | RAD REPORT ---
EXAMINATION: CT Abdomen Pelvis W Contrast CLINICAL INDICATION: Male, 49 years old. ABD PAIN TECHNIQUE: CT abdomen and pelvis was performed, after the administration of IV contrast, as per [facility] protocol. Axial, sagittal and coronal reconstructions were obtained. One or more of the following dose reduction techniques were used: Automated exposure control, adjustment of the mA and k V according to patient size, and iterative reconstruction. Unless otherwise specified, incidental findings do not require dedicated imaging follow-up. COMPARISON: 11/10/2020 FINDINGS: LOWER CHEST: The visualized lung bases are clear. LIVER: Normal in size and contour. No focal lesion. BILIARY SYSTEM: No suspicious abnormalities. SPLEEN: Normal size. No focal lesion. PANCREAS: No mass, ductal dilation, or gaby-pancreatic fluid. ADRENALS: Normal; no mass. KIDNEYS: Upper and lower pole left renal small calculi not exceeding 4 mm. Normal size and contour. N o hydronephrosis. URINARY BLADDER: Unremarkable. GASTROINTESTINAL TRACT: Fluid opacification of nondistended mid to distal small bowel, and proximal a scending colon, nonspecific. No evidence of free air, significant intra-abdominal free fluid, bowel obstruction or abscess. APPENDIX: Normal appendix. LYMPH NODES: No lymphadenopathy. MUSCULOSKELETAL: No acute or suspicious osseous abnormality. ADDITIONAL FINDINGS: None. IMPRESSION: Nonspecific fluid opacification of nondistended bowel extending from the mid small bowel to the proxi mal ascending colon, could relate to diarrheal state. Nonobstructing left renal calculi not exceeding 4 mm.
[2025-02-10] MEDS ORDERED: AMLODIPINE 10 MG TAB ONE (11:53)
--- NOTE | 2025-02-10 11:56 | ER ---
Nurse's Notes [facility] Name: Bertrand Sheth Age: 49 yrs Sex: Male : 1975 Arrival Date: 02/10/2025 Time: 08:09 Bed 6 Private MD: Diagnosis: Abdominal pain, Generalized;Nausea with vomiting, unspecified;Diarrhea, unspecified;Essential (primary) hypertension Presentation: 02/10 08:27 Chief complaint: Abdominal pain and nausea upon waking today. Coronavirus screen: At this time, the client does not indicate any symptoms associated with coronavirus-19. Ebola Screen: No symptoms or risks identified at this time. Initial Sepsis Screen: Does the patient meet any 2 criteria? No. Patient's initial sepsis screen is negative. Does the patient have a suspected source of infection? No. Patient's initial sepsis screen is negative. Risk Assessment: Do you want to hurt yourself or someone else? Patient reports no desire to harm self or others. Onset of symptoms was February 10, 2025. 08:27 Method Of Arrival: Ambulatory 08:27 Acuity: ELIZABETH 3 hb Historical: - Allergies: 08:28 No Known Drug Allergies; hb - PMHx: 08:28 BRAIN DAMAGE; Hypertension; Seizures; DEF LEFT EAR; Hypertension; hb - Immunization history:: Adult Immunizations up to date. - Infectious Disease History:: Denies. - Social history:: Smoking status: Patient denies any tobacco usage or history of. - Family history:: not pertinent. Screenin:06 [facility] ED Fall Risk Assessment (Adult) History of falling in the last 3 months, ld1 including since admission No falls in past 3 months (0 pts) Confusion or Disorientation No (0 pts) Intoxicated or Sedated No (0 pts) Impaired Gait No (0 pts) Mobility Assist Device Used No (0 pt) Altered Elimination No (0 pt) Score/Fall Risk Level 0 - 2 = Low Risk Oriented to surroundings, Hourly rounding (assess needs \T\ fall precautionary measures) done. Abuse screen: Denies threats or abuse. Denies injuries from another. Nutritional screening: No deficits noted. Tuberculosis screening: No symptoms or risk factors identified. Assessment: 09:06 General: Appears in no apparent distress. uncomfortable, Behavior is calm, cooperative, ld1 appropriate for age. Pain: Complains of pain in abdomen Pain does not radiate. Pain currently is 8 out of 10 on a pain scale. Quality of pain is described as throbbing, Pain began suddenly, Is continuous. Neuro: Level of Consciousness is awake, alert, obeys commands, Oriented to person, place, time, situation. Cardiovascular: Capillary refill < 3 seconds Patient's skin is warm and dry. Respiratory: Airway is patent Respiratory effort is even, unlabored. GI: Abdomen is round non-distended, Bowel sounds present X 4 quads. Abd is soft Abd is non tender. GI: Reports lower abdominal pain, upper abdominal pain, nausea. : No signs and/or symptoms were reported regarding the genitourinary system. EENT: No signs and/or symptoms were reported regarding the EENT system. Derm: No signs and/or symptoms reported regarding the dermatologic system. Musculoskeletal: No signs and/or symptoms reported regarding the musculoskeletal system. 10:43 Reassessment: Patient appears in no apparent distress at this time. No changes from ld1 previously documented assessment. Patient and/or family updated on plan of care and expected duration. Pain level reassessed. Patient is alert, oriented x 3, equal unlabored respirations, skin warm/dry/pink. 12:30 Reassessment: Patient appears in no apparent distress at this time. No changes from ld1 previously documented assessment. Patient and/or family updated on plan of care and expected duration. Pain level reassessed. Patient is alert, oriented x 3, equal unlabored respirations, skin warm/dry/pink. 13:01 Reassessment: Patient appears in no apparent distress at this time. No changes from ld1 previously documented assessment. Patient and/or family updated on plan of care and expected duration. Pain level reassessed. Vital Signs: 08:27 BP 174 / 99; Pulse 89; Resp 16; Temp 98.1(O); Pulse Ox 97% on R/A; Weight 107.05 kg; hb Height 5 ft. 10 in. ; Pain 8/10; 09:06 BP 185 / 114; Pulse 89; Resp 18; Pulse Ox 95% on R/A; Pain 8/10; ld1 10:43 Pulse 67; Resp 18; Pulse Ox 97% on R/A; ld1 13:01 BP 176 / 102; Pulse 70; Resp 18; Pulse Ox 98% ; ld1 08:27 Body Mass Index 33.86 (107.05 kg, 177.8 cm) hb 08:27 Pain Scale: Adult hb 09:06 Pain Scale: Adult ld1 ED Course: 08:11 Patient arrived in ED. im 08:20 Reji Hamlin MD is Attending Physician. isaura 08:28 Triage completed. hb 08:29 Robby Valentine, RN is Primary Nurse. bp 08:29 Arm band placed on. hb 08:51 XRAY Chest (1 view) In Process Unspecified. EDMS 09:05 Group A Streptococcus Rapid Sent. ld1 09:05 COVID-19 Ag + Flu A+B Ag Sent. ld1 09:05 UA Rfx Tyson Cult if indicated Sent. ld1 09:05 No provider procedures requiring assistance completed. Inserted saline lock: 20 gauge ld1 in left antecubital area, using aseptic technique. Blood collected. Flushed with 10 mL NS. 09:06 Patient has correct armband on for positive identification. Placed in gown. Bed in low ld1 position. Call light in reach. Side rails up X2. Pulse ox on. NIBP on. Door closed. Noise minimized. Warm blanket given. 09:07 Primary Nurse role handed off by Robby Valentine, JETT ld1 09:07 Samra Laura, JETT is Primary Nurse. ld1 10:12 CT Abd/Pelvis - IV Contrast Only In Process Unspecified. EDMS 11:41 EKG done, by ED staff, reviewed by Reji Hamlin MD. em1 11:56 Donn Rodríguez MD is Referral Physician. isaura 13:02 IV discontinued, intact, bleeding controlled, No redness/swelling at site. ld1 Administered Medications: 09:05 Drug: NS 0.9% IV 1000 ml IV at 1 bolus Per protocol; to be given as a bolus over 60 ld1 minutes Route: IV; Rate: 1 bolus; Site: left antecubital; 09:05 Drug: morphine IVP or IV 4 mg IVP once over 4 mins Route: IVP; Infused Over: 4 mins; ld1 Site: left antecubital; 09:05 Drug: Ondansetron IVP 4 mg IVP once; over 2 minutes Route: IVP; Site: left antecubital; ld1 12:00 Drug: Norvasc PO 10 mg PO once Route: PO; bp Medication: 09:06 VIS not applicable for this client. ld1 Outcome: 11:56 Discharge ordered by . isaura 13:00 Discharged to home via wheelchair, ld1 13:00 Condition: stable 13:00 Discharge instructions given to patient, Instructed on discharge instructions, follow up and referral plans. medication usage, Demonstrated understanding of instructions, follow-up care, medications, Prescriptions given X 5 13:02 Patient left the ED. ld1 Signatures: Dispatcher [employer] EDNM Reji Hamlin MD MD cha Martinez, Eric em1 Fani Ag, RN RN Robby Valentine RN RN Samra Huang RN RN ld1 Gauri De La Rosa
--- NOTE | 2025-02-10 11:56 | EDPHYS ---
Physician Documentation [facility] Name: Bertrand Sheth Age: 49 yrs Sex: Male : 1975 Arrival Date: 02/10/2025 Time: 08:09 Bed 6 Private MD: ED Physician Reji Hamlin HPI: 02/10 09:12 This 49 yrs old Black Male presents to ER via Ambulatory with complaints of Abdominal isaura Pain. 09:12 The patient presents with abdominal pain in the upper abdomen, in the lower abdomen. isaura Onset: The symptoms/episode began/occurred 2 day(s) ago. The patient presents to the emergency department with nausea, vomiting, diarrhea, abdominal pain, of the right upper quadrant, left upper quadrant, right lower quadrant and left lower quadrant. Onset: The symptoms/episode began/occurred 2 day(s) ago. Possible causes: unknown, bad food exposure. The symptoms are aggravated by nothing. The symptoms are alleviated by nothing. Associated signs and symptoms: The patient has no apparent associated signs or symptoms. The symptoms do not radiate. The symptoms are described as constant, crampy. Modifying factors: The symptoms are alleviated by nothing, the symptoms are aggravated by nothing. Historical: - Allergies: 08:28 No Known Drug Allergies; hb - PMHx: 08:28 BRAIN DAMAGE; Hypertension; Seizures; DEF LEFT EAR; Hypertension; hb - Immunization history:: Adult Immunizations up to date. - Infectious Disease History:: Denies. - Social history:: Smoking status: Patient denies any tobacco usage or history of. - Family history:: not pertinent. ROS: 09:12 Constitutional: Negative for fever, chills, and weight loss, Eyes: Negative for injury, isaura pain, redness, and discharge, ENT: Negative for injury, pain, and discharge, Neck: Negative for injury, pain, and swelling, Cardiovascular: Negative for chest pain, palpitations, and edema, Respiratory: Negative for shortness of breath, cough, wheezing, and pleuritic chest pain, Back: Negative for injury and pain, : Negative for injury, bleeding, discharge, and swelling, MS/Extremity: Negative for injury and deformity, Skin: Negative for injury, rash, and discoloration, Neuro: Negative for headache, weakness, numbness, tingling, and seizure, Psych: Negative for depression, anxiety, suicide ideation, homicidal ideation, and hallucinations, Allergy/Immunology: Negative for hives, rash, and allergies, Endocrine: Negative for neck swelling, polydipsia, polyuria, polyphagia, and marked weight changes, Hematologic/Lymphatic: Negative for swollen nodes, abnormal bleeding, and unusual bruising, 09:12 Abdomen/GI: Positive for abdominal pain, nausea and vomiting, nausea, vomiting, diarrhea, Exam: 09:12 Constitutional: This is a well developed, well nourished patient who is awake, alert, isaura and in no acute distress. Head/Face: Normocephalic, atraumatic. Eyes: Pupils equal round and reactive to light, extra-ocular motions intact. Lids and lashes normal. Conjunctiva and sclera are non-icteric and not injected. Cornea within normal limits. Periorbital areas with no swelling, redness, or edema. ENT: Nares patent. No nasal discharge, no septal abnormalities noted. Tympanic membranes are normal and external auditory canals are clear. Oropharynx with no redness, swelling, or masses, exudates, or evidence of obstruction, uvula midline. Mucous membranes moist. Neck: Trachea midline, no thyromegaly or masses palpated, and no cervical lymphadenopathy. Supple, full range of motion without nuchal rigidity, or vertebral point tenderness. No Meningismus. Chest/axilla: Normal chest wall appearance and motion. Nontender with no deformity. No lesions are appreciated. Cardiovascular: Regular rate and rhythm with a normal S1 and S2. No gallops, murmurs, or rubs. Normal PMI, no JVD. No pulse deficits. Respiratory: Lungs have equal breath sounds bilaterally, clear to auscultation and percussion. No rales, rhonchi or wheezes noted. No increased work of breathing, no retractions or nasal flaring. Back: No spinal tenderness. No costovertebral tenderness. Full range of motion. Male : Normal genitalia with no discharge or lesions. Skin: Warm, dry with normal turgor. Normal color with no rashes, no lesions, and no evidence of cellulitis. MS/ Extremity: Pulses equal, no cyanosis. Neurovascular intact. Full, normal range of motion., bilateral aka Neuro: Awake and alert, GCS 15, oriented to person, place, time, and situation. Cranial nerves II-XII grossly intact. Motor strength 5/5 in all extremities. Sensory grossly intact. Cerebellar exam normal. Normal gait. Psych: Awake, alert, with orientation to person, place and time. Behavior, mood, and affect are within normal limits. 09:12 Abdomen/GI: Inspection: distension, Bowel sounds: normal, Palpation: mild abdominal tenderness, in all quadrants, Liver: no appreciated palpable abnormalities, Hernia: not appreciated, Vital Signs: 08:27 BP 174 / 99; Pulse 89; Resp 16; Temp 98.1(O); Pulse Ox 97% on R/A; Weight 107.05 kg; hb Height 5 ft. 10 in. ; Pain 8/10; 09:06 BP 185 / 114; Pulse 89; Resp 18; Pulse Ox 95% on R/A; Pain 8/10; ld1 10:43 Pulse 67; Resp 18; Pulse Ox 97% on R/A; ld1 13:01 BP 176 / 102; Pulse 70; Resp 18; Pulse Ox 98% ; ld1 08:27 Body Mass Index 33.86 (107.05 kg, 177.8 cm) hb 08:27 Pain Scale: Adult hb 09:06 Pain Scale: Adult ld1 MDM: 08:20 Medical Screening Exam initiated isaura 09:17 Differential diagnosis: Nonspecific abd pain, gastritis, cholecystitis, pancreatitis, isaura appendicitis, diverticulitis, viral gastroenteritis, gastroenteritis, Cholelithiasis, diverticulitis, gastritis, gastroesophageal reflux disease, Mesenteric ischemia or infarction, non-specific abd pain, pancreatitis, Peptic Ulcer Disease, Prostatitis, Pyelonephritis, urinary tract infection. Data reviewed: vital signs, nurses notes, lab test result(s), EKG, radiologic studies, CT scan, plain films. Consideration of Admission/Observation Escalation of care including admission/observation considered. I considered the following discharge prescriptions or medication management in the emergency department Medications were administered in the Emergency Department. See MAR. Independent interpretation of the following test(s) in the Emergency Department EKG: See my EKG interpretation above CT Scan: My interpretation is ct abd pel. Test considered but Not performed: Ultrasound no abd usg. Care significantly affected by the following chronic conditions: Hypertension, Obesity, seizute. 02/10 08:36 Order name: Basic Metabolic Panel; Complete Time: 11:23 [facility] 02/10 08:36 Order name: CBC with Diff; Complete Time: 11:23 [facility] 02/10 08:36 Order name: LFT's; Complete Time: 11:23 [facility] 02/10 08:36 Order name: Magnesium; Complete Time: 11:23 [facility] 02/10 08:36 Order name: NT PRO-BNP; Complete Time: 11:23 [facility] 02/10 08:36 Order name: PT-INR; Complete Time: 11:23 [facility] 02/10 08:36 Order name: Troponin HS; Complete Time: 11:23 [facility] 02/10 08:36 Order name: UA Rfx Tyson Cult if indicated; Complete Time: 11: [facility] 02/10 08:36 Order name: Lipase; Complete Time: 11: [facility] 02/10 08:36 Order name: COVID-19 Ag + Flu A+B Ag; Complete Time: : [facility] 02/10 08:36 Order name: Group A Streptococcus Rapid; Complete Time: : [facility] 02/10 09:55 Order name: Throat Culture [facility] 02/10 08:36 Order name: XRAY Chest (1 view); Complete Time: 11: [facility] 02/10 08:36 Order name: CT Abd/Pelvis - IV Contrast Only; Complete Time: 11:56 [facility] 02/10 08:36 Order name: Cardiac monitoring; Complete Time: 09: [facility] 02/10 08:36 Order name: EKG - Nurse/Tech; Complete Time: 09: [facility] 02/10 08:36 Order name: IV Saline Lock; Complete Time: 09: [facility] 02/10 08:36 Order name: Labs collected and sent; Complete Time: 09: [facility] 02/10 08:36 Order name: O2 Per Protocol; Complete Time: : [facility] 02/10 08:36 Order name: O2 Sat Monitoring; Complete Time: : [facility] 02/10 11:23 Order name: EKG - Nurse/Tech; Complete Time: 11:38 [facility] Administered Medications: 09:05 Drug: NS 0.9% IV 1000 ml IV at 1 bolus Per protocol; to be given as a bolus over 60 ld1 minutes Route: IV; Rate: 1 bolus; Site: left antecubital; 09:05 Drug: morphine IVP or IV 4 mg IVP once over 4 mins Route: IVP; Infused Over: 4 mins; ld1 Site: left antecubital; 09:05 Drug: Ondansetron IVP 4 mg IVP once; over 2 minutes Route: IVP; Site: left antecubital; ld1 12:00 Drug: Norvasc PO 10 mg PO once Route: PO; bp Disposition Summary: 02/10/25 11:56 Discharge Ordered Notes: Location: Home isaura Problem: new isaura Symptoms: have improved isaura Condition: Stable isaura Diagnosis - Abdominal pain, Generalized isaura - Nausea with vomiting, unspecified isaura - Diarrhea, unspecified isaura - Essential (primary) hypertension isaura Followup: isaura - With: Private Physician - When: 2 - 3 days - Reason: Recheck today's complaints, Continuance of care, Re-evaluation by your physician Followup: isaura - With: Donn Rodríguez MD - When: 2 - 3 days - Reason: Recheck today's complaints, Re-evaluation by your physician Discharge Instructions: - Discharge Summary Sheet isaura - Abdominal Pain, Adult isaura - Food Choices to Help Relieve Diarrhea, Adult isaura - Diarrhea, Adult isaura - Hypertension, Adult isaura - Nausea, Adult isaura - Nausea and Vomiting, Adult, [id number] isaura - Hypertension, Adult, [id number] isaura - How to Take Your Blood Pressure, [id number] isaura - Aspirin and Your Heart isaura - Managing Your Hypertension [facility] Forms: - Medication Reconciliation Form [facility] - Antibiotic Education isaura - Prescription Opioid Use isaura - Patient Portal Instructions [facility] - Leadership Thank You Letter [facility] Prescriptions: - ondansetron 4 mg Oral Tablet,disintegrating - take 1 tablet ORAL route every 6 hours as needed for nausea and vomiting; 20 isaura tablet; Refills: 0, Product Selection Permitted - Norvasc 10 mg Oral Tablet - take 1 tablet ORAL route once daily; 30 tablet; Refills: 0, Product Selection isaura Permitted - Pepcid 20 mg Oral tablet - take 1 tablet ORAL route every 12 hours for 21 days; 42 tablet; Refills: 0, [facility] Product Selection Permitted - Cipro 500 mg Oral tablet - take 1 tablet ORAL route every 12 hours for 5 days; 10 tablet; Refills: 0, [facility] Product Selection Permitted - dicyclomine 20 mg Oral tablet - take 1 tablet ORAL route 4 times per day; 28 tablet; Refills: 0, Product isaura Selection Permitted Signatures: Dispatcher [employer] Reji Cleaning MD MD cha Baxter, Heather, RN RN hb Peltier, Brian, RN RN bp Samra Laura RN RN ld1 Corrections: (The following items were deleted from the chart) 08:37 08:37 BASIC METABOLIC PANEL+C.LAB.BRZ ordered. EDMS EDMS 08:37 08:37 CBC+H.LAB.BRZ ordered. EDMS EDMS 08:37 08:37 HEPATIC FUNCTION+C.LAB.BRZ ordered. EDMS EDMS 08:37 08:37 MAGNESIUM+C.LAB.BRZ ordered. EDMS EDMS 08:37 08:37 PROBNP+C.LAB.BRZ ordered. EDMS EDMS 08:37 08:37 PROTIME (+INR)+COAG.LAB.BRZ ordered. EDMS EDMS 08:37 08:37 Troponin High Sensitivity+C.LAB.BRZ ordered. EDMS EDMS 08:37 08:37 UA Rfx Tyson Cult if indicated+U.LAB.BRZ ordered. EDMS EDMS 08:37 08:37 LIPASE+C.LAB.BRZ ordered. EDMS EDMS 08:37 08:37 COVID-19 Ag + Flu A+B Ag+I.LAB.BRZ ordered. EDMS EDMS 08:37 08:37 Group A Streptococcus Rapid Sc+I.LAB.BRZ ordered. EDMS EDMS 08:37 08:37 Chest Single View+RAD.RAD.BRZ ordered. EDMS EDMS 08:37 08:37 Abdomen Pelvis W Con+CT.RAD.BRZ ordered. EDMS EDMS
[2025-02-10 13:16] VITALS: TEMP 98.1
[2025-02-10 13:21] VITALS: BP 176/102; O2SAT 98
--- NOTE | 2025-02-12 12:23 | EKG ---
Test Date: 2025-02-10 Test Time: 11:39:01 Extractive Metallurgist: JOE MEASUREMENT RESULTS: Intervals: Rate: 72 OK: 174 QRSD: 86 QT: 408 QTc: 446 [place]: P: 53 OK: 174 QRS: 20 T: 8 INTERPRETIVE STATEMENTS: Normal sinus rhythm Minimal voltage criteria for LVH, may be normal variant Nonspecific T wave abnormality Abnormal ECG Compared to ECG 11/10/2020 06:15:13 Left ventricular hypertrophy now present T-wave abnormality now present Electronically Signed On 02-12-25 12:19:35 CDT by Hernan Maldonado
== END 2025-02-10 13:02 | disposition home or self-care (01) ==
LOC: ER 08:09
DX: R10.84 Generalized abdominal pain (principal); R11.2 Nausea with vomiting, unspecified; R19.7 Diarrhea, unspecified; I10 Essential (primary) hypertension
CPT/HCPCS: 36415; 71045; 74177; 80048; 80076; 81001; 83690; 83735; 83880; 84484; 85025; 85610; 87070; 87428; 93005; 96374; 96375; 99284; J2405; J7030; Q9967